=== PATIENT | male | born 1970 | race Caucasian/White ===

== ENCOUNTER 2020-01-12 18:02 | Emergency (ER) | payer BC ==
[~2020-01-12] VITALS: Ht 172.7 cm; Wt 93.0 kg
[2020-01-12 19:09] VITALS: BP 154/92
[2020-01-12 19:45] LABS: Basophils # (auto) 0 10 ^3/uL (0-0.2); Basophils % (auto) 0.4 % (0.0-2.0); Eosinophils # (auto) 0.1 10 ^3/uL (0-0.8); Eosinophils % (auto) 1.5 % (0.0-7.0); Hematocrit 40.4 % (41.0-53.0); Hemoglobin 14.1 g/dL (13.5-17.5); Lymphocytes # (auto) 0.8 10 ^3/uL (0.4-5.4); Lymphocytes % (auto) 10.7 % (10.0-50.0); Mean Corpuscular Hemoglobin 32.7 pg (28.0-32.0); Mean Corpuscular Hgb Conc. 34.9 g/dL (32.0-36.0); Mean Corpuscular Volume 93.8 fL (80.0-100.0); Monocytes # (auto) 0.5 10 ^3/uL (0-1.3); Monocytes % (auto) 6.7 % (0.0-12.0); Neutrophils % (auto) 80.7 % (37.0-80.0); Platelet Count (auto) 234 10^3/uL (140-450); Red Blood Cells 4.31 10^6/uL (4.5-5.90); Red Cell Distribution Width 12.9 % (11.8-14.3); White Blood Cell 7.5 10^3/uL (4.4-10.8)
[2020-01-12 20:01] LABS: INR 1.03 (0.9-1.15)
[2020-01-12 20:04] LABS: Albumin 4.1 g/dL (3.4-5.0); Calcium 9.1 mg/dL (8.5-10.1); Potassium 3.8 mmol/L (3.5-5.1)
[2020-01-12 20:05] LABS: BUN/Creatinine Ratio 17.1
[2020-01-12 20:07] LABS: Magnesium 2.4 mg/dL (1.6-2.6)
[2020-01-12 20:12] LABS: Bilirubin, Total 0.4 mg/dL (0.2-1.0); Total Protein 7.5 g/dL (6.4-8.2)
[2020-01-12 21:10] LABS: Urine Bacteria NONE SEEN /hpf (None Seen); Urine Blood Negative /uL (Negative); Urine WBC 1 /hpf (0 - 3)
[2020-01-13] MEDS ORDERED: ATOR20TA PO (17:52)
[2020-01-13] MEDS ORDERED: ENAL2.5T PO (17:53)
[2020-01-13] MEDS ORDERED: OMEP20TA PO (17:53)
== END 2020-01-12 20:02 | disposition left against medical advice (07) ==
LOC: ER 18:02
DX: R53.1 Weakness (principal); R20.0 Anesthesia of skin; Z53.21 Procedure and treatment not carried out due to patient leaving prior to being seen by health care provider
CPT/HCPCS: 36415; 70450; 71045; 80053; 81001; 83735; 83880; 84484; 85025; 85379; 85610; 85730; 93005

== ENCOUNTER 2020-01-13 11:16 | Inpatient (IN) | payer SELFPAY ==
[~2020-01-13] VITALS: Ht 172.7 cm; Wt 90.1 kg
[2020-01-13] MEDS ORDERED: ACETAMINOPHEN 325 MG TAB PO ONE (13:00)
[2020-01-13] MEDS ORDERED: LORazepam 2MG/ML-1ML VIAL IV ONE (13:15)
[2020-01-13 13:42] LABS: Basophils # (auto) 0 10 ^3/uL (0-0.2); Basophils % (auto) 0.5 % (0.0-2.0); Eosinophils # (auto) 0.2 10 ^3/uL (0-0.8); Hematocrit 41.2 % (41.0-53.0); Hemoglobin 13.7 g/dL (13.5-17.5); Lymphocytes # (auto) 1.6 10 ^3/uL (0.4-5.4); Lymphocytes % (auto) 28.8 % (10.0-50.0); Mean Corpuscular Hemoglobin 31.8 pg (28.0-32.0); Mean Corpuscular Hgb Conc. 33.2 g/dL (32.0-36.0); Mean Corpuscular Volume 95.6 fL (80.0-100.0); Monocytes # (auto) 0.4 10 ^3/uL (0-1.3); Monocytes % (auto) 6.6 % (0.0-12.0); Neutrophils # (auto) 3.4 10 ^3/uL (1.6-8.6); Neutrophils % (auto) 60.1 % (37.0-80.0); Nucleated Red Blood Cells % 0.1 %; Platelet Count (auto) 238 10^3/uL (140-450); Red Blood Cells 4.31 10^6/uL (4.5-5.90); Red Cell Distribution Width 13.3 % (11.8-14.3); White Blood Cell 5.7 10^3/uL (4.4-10.8)
[2020-01-13 13:57] LABS: INR 0.98 (0.9-1.15); Partial Thromboplastin Time 26.5 sec (23.64-32.05)
[2020-01-13 14:00] LABS: Albumin 3.6 g/dL (3.4-5.0); Anion Gap 7 (5-15); Blood Urea Nitrogen 15 mg/dL (7-18); Calcium 8.4 mg/dL (8.5-10.1); Carbon Dioxide 26 mmol/L (21-32); Chloride 108 mmol/L (98-107); Glucose 103 mg/dL (74-106); Magnesium 2.5 mg/dL (1.6-2.6); Potassium 3.7 mmol/L (3.5-5.1); Sodium 141 mmol/L (136-145)
[2020-01-13 14:04] LABS: Alanine Aminotransferase 24 U/L (16-61); Alkaline Phosphatase 82 U/L (45-117); Aspartate Aminotransferase 14 U/L (15-37); BUN/Creatinine Ratio 14.2; Bilirubin, Total 0.2 mg/dL (0.2-1.0); GFR African American 95 mL/min; GFR Non-African American 79 mL/min; Total Protein 6.8 g/dL (6.4-8.2)
[2020-01-13] MEDS ORDERED: FOLIC ACID 1 MG, MULTIPLE VITAMIN 10 ML, MAGNESIUM SULF SDV 50% 8 MEQ, THIAMINE INJ 100... INJ SCH ×5 (16:00)
[2020-01-13] MEDS ORDERED: NITROGLYCERIN 0.4 MG SL TAB SL PRN (16:00)
[2020-01-13] MEDS ORDERED: MORPHINE SULF INJ 2 MG/ML SYRINGE 1ML IV PRN ×2 (16:00)
[2020-01-13] MEDS ORDERED: ACETAMINOPHEN 500 MG TAB PO PRN (16:00)
[2020-01-13] MEDS ORDERED: SODIUM CHLORIDE 0.9% 1,000 ML IV ONE (16:30)
[2020-01-13] MEDS ORDERED: FOLIC ACID 1 MG in D5W 5% 50 ML IV ONE (16:30)
[2020-01-13] MEDS ORDERED: THIAMINE 100mg/ml INJ (200mg/2ml VIAL) IV ONE (16:30)
[2020-01-13 16:39] LABS: Urine WBC None Seen /hpf (0 - 3)
[2020-01-13 16:55] LABS: Urine Bacteria NONE SEEN /hpf (None Seen); Urine Blood Negative /uL (Negative); Urine Mucus FEW (None Seen); Urine Specific Gravity 1.038 (1.001-1.035)
[2020-01-13] MEDS: HYDROcodone-ACET 5/325MG TAB PO PRN (17:05)
[2020-01-13 17:09] LABS: Alcohol, Urine < 3.0 mg/dL (0-5); Amphetamine Screen, Urine POSITIVE (NEGATIVE); Barbiturate Scree,Urine NEGATIVE (NEGATIVE); Benzodiazephine Screen, Urine POSITIVE (NEGATIVE); Cannabinoid Screen, Urine POSITIVE (NEGATIVE); Cocaine Screen, Urine NEGATIVE (NEGATIVE); Opiate Scree,Urine POSITIVE (NEGATIVE); Phencyclidine Screen, Urine NEGATIVE (NEGATIVE)
--- NOTE | 2020-01-13 17:24 | NUR ---
Pt Arrived on Unit Pt arrived on unit via wheelchair from ED. Pt was able to ambulate to bed without difficulty. Pt is a/ox4 with no s/s of distress. Safety measures maintained with call light within reach, bed in lowest position and side rails up. Will continue to monitor.
[2020-01-13 17:30] VITALS: BP 146/100
[2020-01-13] MEDS: ONDANSETRON HCL 4 MG/2 ML VIAL IV PRN (17:37)
[2020-01-13 17:43] VITALS: BP 146/100
[2020-01-13] MEDS ORDERED: ATOR20TA PO (17:52)
[2020-01-13] MEDS ORDERED: ENAL2.5T PO (17:53)
[2020-01-13] MEDS ORDERED: OMEP20TA PO (17:53)
--- NOTE | 2020-01-13 19:30 | NUR ---
OPENING SHIFT NOTE Assumed care of patient who is A&O x4. Currently on RA with no s/s of distress. Denies pain at this time. Patient is ambulatory with standby assist, without the use of assistive devices. PIV intact and patent. Infusing IVF as ordered. No s/s of infection or irritation. POC discussed and patient verbalizes understanding. Bed is in low locked position with side rails up x2. Call light is within reach and patient encouraged to call for assistance when needed. Will continue to monitor for changes PRN.
[2020-01-13 20:00] VITALS: BP 123/83
[2020-01-13 21:58] VITALS: BP 125/83
--- NOTE | 2020-01-14 01:15 | NUR ---
Patient ambulated to the restroom independently. Steady gait noted; tolerated well.
--- NOTE | 2020-01-14 02:25 | NUR ---
PAIN Patient reports 4/10 headache and left hip pain. Requesting pain medication. Will medicate according to orders.
[2020-01-14] MEDS: HYDROcodone-ACET 5/325MG TAB PO PRN ×2 (02:30→09:55)
--- NOTE | 2020-01-14 05:17 | NUR ---
ELEVATED BLOOD PRESSURE Patient has a history of HTN. BP is 156/94, HR 70. Currently, the patient has no orders for BP medications. He states that he take enalapril at home. Hospitalist paged to notify.
[2020-01-14 05:37] VITALS: BP 156/94
--- NOTE | 2020-01-14 05:39 | NUR ---
Hospitalist Received call from Hospitalist, Chente Marie NP. New orders received. Will follow through.
[2020-01-14] MEDS ORDERED: cloNIDine HCL 0.1 MG TAB PO ONE (05:45)
--- NOTE | 2020-01-14 07:30 | NUR ---
Opening Shift Note Assumed care of patient, who is alert and oriented x4. No S/S of distress/SOB or pain. Bed is low, locked with 2x side rails up. Call light is within reach. Instructed on POC and to call for assist PRN, will continue to monitor for changes Q1hr and PRN.
[2020-01-14 09:00] VITALS: BP 137/82
[2020-01-14] MEDS: FAMOTIDINE 20 MG TAB PO SCH (09:56)
[2020-01-14] MEDS: FOLIC ACID 1 MG, MULTIPLE VITAMIN 10 ML, MAGNESIUM SULF SDV 50% 8 MEQ, THIAMINE INJ 100... INJ SCH ×5 (12:01)
[2020-01-14 13:00] VITALS: BP 143/97
[2020-01-14] MEDS ORDERED: ENALAPRIL MALEATE 2.5 MG TAB PO ONE (13:00)
[2020-01-14] MEDS ORDERED: LORazepam 0.5 MG TAB PO PRN (13:00)
--- NOTE | 2020-01-14 14:20 | NUR ---
EEG Called Nuclear Medicine to verify when patient will have EEG done. No answer, will attempt to call later.
[2020-01-14] MEDS: ONDANSETRON HCL 4 MG/2 ML VIAL IV PRN (15:17)
--- NOTE | 2020-01-14 16:05 | NUR ---
IV fluids Patient has banana bag IVF running per MD order. 300 ml infused and patient began reporting hot flashes and redness to skin; stated he did not feel good. This nurse stopped IV fluids and assessed skin. No rashes/bumps noted upon assessment.
[2020-01-14 17:00] VITALS: BP 137/79
--- NOTE | 2020-01-14 17:47 | NUR ---
NS IVF New orders for NS IVF to begin at 1800. Patient stated he does not want anymore IV fluids at this time. This nurse explained the need for IVF and patient still declined. Will relay to oncoming nurse.
[2020-01-14] MEDS: SODIUM CHLORIDE 0.9% 1,000 ML IV SCH (17:49)
--- NOTE | 2020-01-14 19:30 | NUR ---
Opening Shift Note Assumed care of patient. Patient is sleeping and resting comfortably. No S/S of distress/SOB or pain. Will continue to monitor for changes Q1hr and PRN. Bed locked in lowest position and bed rails up x2. Call light within reach.
[2020-01-14 21:55] VITALS: BP 138/84
[2020-01-15] MEDS: SODIUM CHLORIDE 0.9% 1,000 ML IV SCH ×3 (01:00→14:00)
[2020-01-15 05:23] VITALS: BP 144/94
--- NOTE | 2020-01-15 07:45 | NUR ---
Opening Note Assumed care of patient, he is A & O x4, no s/s of distress. POC discussed with patient. Bed is in lowest, locked position, call light within reach. Will continue to monitor Q1h and PRN.
--- NOTE | 2020-01-15 08:22 | NUR ---
Dr. Jung at bedside. No further orders at this time. Will check on status of EEG exam to be done today. Communication order to call Dr. Jung with results of EEG, will possibly discharge this afternoon.
[2020-01-15 09:00] VITALS: BP 171/99
[2020-01-15] MEDS ORDERED: ENALAPRIL MALEATE 2.5 MG TAB PO SCH (10:00)
[2020-01-15] MEDS: FAMOTIDINE 20 MG TAB PO SCH (11:12)
--- NOTE | 2020-01-15 11:12 | NUR ---
Patient BP elevated, patient was upset this morning and anxious to leave. Per patient, he apologized for "being grumpy this morning, I was frustrated and want to get out of here." Daily medication given for BP. Spoke to patient, he agrees he will wait for the EEG to be completed and for Dr. Lopez to clear him. Will reassess in one hour.
[2020-01-15] MEDS: HYDROcodone-ACET 5/325MG TAB PO PRN ×2 (11:13→11:15)
[2020-01-15] MEDS: FOLIC ACID 1 MG, MULTIPLE VITAMIN 10 ML, MAGNESIUM SULF SDV 50% 8 MEQ, THIAMINE INJ 100... INJ SCH ×5 (12:00)
[2020-01-15 12:15] VITALS: BP 145/95
--- NOTE | 2020-01-15 12:15 | NUR ---
BP reassess. BP 145/95, HR 63. Patient with no s/s of distress. Ambulatory and independent. EEG completed. Will continue to monitor.
--- NOTE | 2020-01-15 12:42 | NUR ---
Paged Dr. Lopez. Patient waiting on EEG results, EEG was completed this morning. Patient needs clearance by Dr. Lopez for discharge per Dr. Jung.
--- NOTE | 2020-01-15 13:25 | NUR ---
Paged Dr. Lopez Waiting on EEG to be read and neurological clearance for discharge per Dr. Jung.
--- NOTE | 2020-01-15 13:35 | NUR ---
Spoke to Dr. Jung on phone. Patient is anxious to go home, he says "I have to leave by 2PM." Informed Dr. Jung that patient would like to be discharged. Dr. Jung said we have to wait for clearance by neurology. If he wants to leave he will have to sign out AMA. Informed the patient regarding Dr. Jung's instructions. Patient refused to sign AMA at this time.
--- NOTE | 2020-01-15 13:55 | NUR ---
Spoke to patient regarding POC. Informed patient that if he had to leave by 2 PM we do not have results, AMA was offered, patient stated he would wait until this RN came back from lunch to see if results came back. This RN removed his IV to the left forearm, pressure dressing applied. at bedside. This RN informed patient I would check back when I came back from lunch, there will be a nurse covering for me to inform them if he changed his mind. Patient agreed.
--- NOTE | 2020-01-15 14:31 | NUR ---
Patient eloped. Bed empty, linen stripped. No sign of patient. Per BUTTON MACHINE OPERATOR patient left 20 minutes ago, this RN was at lunch. Covering RNMiranda was uniformed regarding patient leaving. Patient IV had been removed, no tele monitor. Will inform Dr. Jung and apparatus repair mechanic.
--- NOTE | 2020-01-15 14:47 | NUR ---
Dr. Jung informed regarding patient elopement. Notes placed. residential remodeling subcontractor informed of patient elopement.
--- NOTE | 2020-01-15 14:59 | NUR ---
Patient eloped. Addendum: 01/15/20 at 1500 by Joy Rai RN Amended: Links added.
== END 2020-01-15 14:31 | disposition left against medical advice (07) | DRG 71 ==
LOC: ER 11:16 → OVERFLOW 11:17 → CENTRAL 17:30
PROVIDERS: ADMIT Nurse Practitioner Acute Care; ATTEND Family Medicine
DX: G93.41 Metabolic encephalopathy (principal); F10.239 Alcohol dependence with withdrawal, unspecified; F41.9 Anxiety disorder, unspecified; M62.838 Other muscle spasm; Z53.29 Procedure and treatment not carried out because of patient's decision for other reasons; I10 Essential (primary) hypertension; K21.9 Gastro-esophageal reflux disease without esophagitis; E78.5 Hyperlipidemia, unspecified; E78.00 Pure hypercholesterolemia, unspecified; F13.10 Sedative, hypnotic or anxiolytic abuse, uncomplicated; F12.10 Cannabis abuse, uncomplicated; F11.10 Opioid abuse, uncomplicated; F19.10 Other psychoactive substance abuse, uncomplicated; Y90.0 Blood alcohol level of less than 20 mg/100 ml; Z88.6 Allergy status to analgesic agent; Z79.899 Other long term (current) drug therapy; Z82.49 Family history of ischemic heart disease and other diseases of the circulatory system
CPT/HCPCS: 36415; 70551; 71045; 80053; 80307; 81001; 82306; 82607; 83735; 84207; 84443; 84484; 85025; 85379; 85610; 85730; 95819; 96365; 96375; G0378; J2405; J7060

== ENCOUNTER 2020-01-31 09:29 | Emergency (ER) | payer BC, MEDICAID ==
[~2020-01-31] VITALS: Ht 172.7 cm; Wt 93.0 kg
[~2020-01-31 09:29] MED LIST: ATOR20TA PO; ENAL2.5T PO; OMEP20TA PO
[2020-01-31 09:39] VITALS: BP 165/107
[2020-01-31] MEDS ORDERED: HYDROcodone-ACET 10/325MG TAB PO ONE (10:15)
[2020-01-31] MEDS ORDERED: KETOROLAC TROMETH 60MG/2ML VIAL IM ONE (10:15)
== END 2020-01-31 11:26 | disposition home or self-care (01) ==
LOC: ER 09:29
DX: M48.061 Spinal stenosis, lumbar region without neurogenic claudication (principal); M54.16 Radiculopathy, lumbar region; G89.29 Other chronic pain; I10 Essential (primary) hypertension; E78.5 Hyperlipidemia, unspecified; K21.9 Gastro-esophageal reflux disease without esophagitis; Z88.6 Allergy status to analgesic agent
CPT/HCPCS: 72131; 96372; 99284; J1885

== ENCOUNTER → 2020-03-21 | Emergency (ER) | payer SELFPAY ==
[~2020-03-21] VITALS: Ht 30.5 cm; Wt 0.5 kg
[~2020-03-21] MED LIST changes: +ACETAMINOPHEN 325 MG TAB PO ONE; +ATORVASTATIN 20 MG TAB ONE; +HALOPERIDOL LACTATE 5 MG/ML INJ VIAL IM ONE; +HYDROcodone-ACET 10/325MG TAB PO ONE; +HYDROcodone-ACET 5/325MG TAB ONE; +HYDROcodone-ACET 5/325MG TAB PO ONE; +LORazepam 0.5 MG TAB PO ONE; +LORazepam 0.5 MG TAB PO PRN; +LORazepam 2MG/ML-1ML VIAL IM ONE; +ONDANSETRON HCL 4 MG/2 ML VIAL ONE; +SODIUM CHLORIDE 0.9% 1,000 ML IV ONE; +THIAMINE INJ 100 MG in SODIUM CHLORIDE 0.9% 1,000 ML IV ONE; +diphenhdrAMINE HCL 50 MG/1 ML VL IM ONE
[2020-03-21 15:31] LABS: Basophils # (auto) 0 10 ^3/uL (0-0.2); Basophils % (auto) 0.9 % (0.0-2.0); Eosinophils # (auto) 0.1 10 ^3/uL (0-0.8); Eosinophils % (auto) 2.3 % (0.0-7.0); Hematocrit 39.6 % (41.0-53.0); Hemoglobin 13.5 g/dL (13.5-17.5); Lymphocytes # (auto) 1.1 10 ^3/uL (0.4-5.4); Mean Corpuscular Hemoglobin 32.2 pg (28.0-32.0); Mean Corpuscular Hgb Conc. 34.1 g/dL (32.0-36.0); Mean Corpuscular Volume 94.4 fL (80.0-100.0); Monocytes # (auto) 0.5 10 ^3/uL (0-1.3); Monocytes % (auto) 9.9 % (0.0-12.0); Neutrophils # (auto) 3.3 10 ^3/uL (1.6-8.6); Neutrophils % (auto) 64.9 % (37.0-80.0); Nucleated Red Blood Cells % 0.1 %; Platelet Count (auto) 189 10^3/uL (140-450); Red Blood Cells 4.19 10^6/uL (4.5-5.90); Red Cell Distribution Width 13.1 % (11.8-14.3); White Blood Cell 5.1 10^3/uL (4.4-10.8)
[2020-03-21 15:38] LABS: Alcohol, Urine < 3.0 mg/dL (0-5); Amphetamine Screen, Urine POSITIVE (NEGATIVE); Barbiturate Scree,Urine NEGATIVE (NEGATIVE); Benzodiazephine Screen, Urine POSITIVE (NEGATIVE); Cannabinoid Screen, Urine POSITIVE (NEGATIVE); Cocaine Screen, Urine NEGATIVE (NEGATIVE); Opiate Scree,Urine POSITIVE (NEGATIVE); Phencyclidine Screen, Urine NEGATIVE (NEGATIVE)
[2020-03-21 15:44] LABS: Albumin 3.7 g/dL (3.4-5.0); Anion Gap 5 (5-15); BUN/Creatinine Ratio 18.5; Blood Alcohol < 3.0 mg/dL (0-5); Blood Urea Nitrogen 17 mg/dL (7-18); Calcium 8.5 mg/dL (8.5-10.1); Carbon Dioxide 28 mmol/L (21-32); Chloride 106 mmol/L (98-107); GFR African American 112 mL/min; GFR Non-African American 93 mL/min; Glucose 95 mg/dL (74-106); Potassium 3.3 mmol/L (3.5-5.1); Salicylate < 1.7 mg/dL (2.8-20.0); Sodium 139 mmol/L (136-145)
[2020-03-21 15:46] LABS: Acetaminophen < 2.0 ug/mL (10-30)
[2020-03-21 15:47] LABS: Alanine Aminotransferase 27 U/L (16-61); Alkaline Phosphatase 64 U/L (45-117); Aspartate Aminotransferase 18 U/L (15-37); Bilirubin, Total 0.7 mg/dL (0.2-1.0); Total Protein 6.9 g/dL (6.4-8.2)
[2020-03-22] MEDS: PANTOPRAZOLE 40 MG TAB PO SCH (18:44)
[2020-03-22] MEDS: ATORVASTATIN 20 MG TAB PO SCH (21:10)
[2020-03-23] MEDS: PANTOPRAZOLE 40 MG TAB PO SCH (10:05)
[2020-03-23] MEDS: ENALAPRIL MALEATE 10 MG TAB PO SCH (10:06)
[2020-03-23] MEDS: HYDROcodone-ACET 5/325MG TAB PO PRN (10:09)
[2020-03-23] MEDS: ATORVASTATIN 20 MG TAB PO SCH (23:02)
[2020-03-24] MEDS: HYDROcodone-ACET 5/325MG TAB PO PRN ×3 (06:23→22:27)
[2020-03-24] MEDS: ENALAPRIL MALEATE 10 MG TAB PO SCH (12:13)
[2020-03-24] MEDS: PANTOPRAZOLE 40 MG TAB PO SCH (12:13)
[2020-03-24 19:28] VITALS: BP 159/97
[2020-03-24] MEDS: ATORVASTATIN 20 MG TAB PO SCH (22:27)
[2020-03-25] MEDS: HYDROcodone-ACET 5/325MG TAB PO PRN (05:07)
== END | disposition home or self-care (01) ==
LOC: EDUNIT# 14:47 → ER 14:55 → EDBD 14:55
DX: T42.4X2A Poisoning by benzodiazepines, intentional self-harm, initial encounter (principal); T40.602A Poisoning by unspecified narcotics, intentional self-harm, initial encounter; R41.82 Altered mental status, unspecified; F19.10 Other psychoactive substance abuse, uncomplicated; F10.20 Alcohol dependence, uncomplicated
CPT/HCPCS: 36415; 70450; 80053; 80307; 80320; 80329; 85025; 93005; 96360; 96361; 96372; 99285; J2405

== ENCOUNTER 2021-12-30 21:44 | Emergency (ER) | payer MEDICAID ==
[~2021-12-30] VITALS: Ht 172.7 cm; Wt 86.2 kg
[~2021-12-30 21:44] MED LIST changes: -ACETAMINOPHEN 325 MG TAB PO ONE; -ATORVASTATIN 20 MG TAB ONE; -ENAL2.5T PO; +ENAL2.5T7 PO; -HALOPERIDOL LACTATE 5 MG/ML INJ VIAL IM ONE; -HYDROcodone-ACET 10/325MG TAB PO ONE; -HYDROcodone-ACET 5/325MG TAB ONE; -HYDROcodone-ACET 5/325MG TAB PO ONE; -LORazepam 0.5 MG TAB PO ONE; -LORazepam 0.5 MG TAB PO PRN; -LORazepam 2MG/ML-1ML VIAL IM ONE; -ONDANSETRON HCL 4 MG/2 ML VIAL ONE; -SODIUM CHLORIDE 0.9% 1,000 ML IV ONE; -THIAMINE INJ 100 MG in SODIUM CHLORIDE 0.9% 1,000 ML IV ONE; -diphenhdrAMINE HCL 50 MG/1 ML VL IM ONE
[2021-12-30 23:19] VITALS: BP 160/100
== END 2021-12-30 23:28 | disposition home or self-care (01) ==
LOC: EDBD 21:44 → ER 21:49
DX: T40.0X1A Poisoning by opium, accidental (unintentional), initial encounter (principal); K21.9 Gastro-esophageal reflux disease without esophagitis; E78.5 Hyperlipidemia, unspecified; I10 Essential (primary) hypertension; X58.XXXA Exposure to other specified factors, initial encounter; Y93.89 Activity, other specified; Y92.89 Other specified places as the place of occurrence of the external cause; Y99.8 Other external cause status
CPT/HCPCS: 82962; 93005

== ENCOUNTER 2022-05-08 11:45 | Emergency (ER) | payer OTHER ==
[~2022-05-08] VITALS: Ht 172.7 cm; Wt 88.5 kg
[2022-05-08 12:43] VITALS: BP 150/82
== END 2022-05-08 15:17 | disposition home or self-care (01) ==
LOC: ER 11:45
DX: M48.02 Spinal stenosis, cervical region (principal); K21.9 Gastro-esophageal reflux disease without esophagitis; E78.5 Hyperlipidemia, unspecified; I10 Essential (primary) hypertension
CPT/HCPCS: 72125

== ENCOUNTER 2022-07-01 06:05 | Emergency (ER) | payer MEDICAID, OTHER ==
[~2022-07-01] VITALS: Ht 172.7 cm; Wt 100.0 kg
[2022-07-01] MEDS ORDERED: KETOROLAC TROMETH 60MG/2ML VIAL IM ONE (07:00)
[2022-07-01 07:20] VITALS: BP 152/80
[2022-07-01] MEDS ORDERED: COLC1CAP PO (07:33)
[2022-07-01] MEDS ORDERED: INDO50SU RE (07:33)
== END 2022-07-01 07:39 | disposition home or self-care (01) ==
LOC: ER 06:05
DX: M19.072 Primary osteoarthritis, left ankle and foot (principal); M10.9 Gout, unspecified; K21.9 Gastro-esophageal reflux disease without esophagitis; E78.5 Hyperlipidemia, unspecified; I10 Essential (primary) hypertension; Z88.6 Allergy status to analgesic agent
CPT/HCPCS: 73630; 96372; 99283; J1885

== ENCOUNTER 2023-12-14 04:59 | Emergency (ER) | payer BC, MEDICAID ==
[~2023-12-14] VITALS: Ht 172.7 cm; Wt 95.5 kg
[~2023-12-14 04:59] MED LIST changes: +COLC1CAP PO; +ENAL1TAB42 PO; -ENAL2.5T7 PO; +INDO50SU RE
[2023-12-14] MEDS ORDERED: NALOXONE HCL 1MG/ML 2ML SYRINGE ONE (13:17)
[2023-12-14] MEDS ORDERED: NALOXONE HCL 1MG/ML 2ML SYRINGE IV ONE ×3 (13:30→19:45)
[2023-12-14 14:15] VITALS: PULSE 68; RESP 13; O2SAT 97
[2023-12-14] MEDS ORDERED: NALOXONE HCL 2 MG in D5W 5% 495 ML IV ONE (19:45)
[2023-12-14 20:00] VITALS: PULSE 62; RESP 10; TEMP 97.7; O2SAT 99
[2023-12-15 03:32] LABS: Amphetamine Screen, Urine Pos (NEGATIVE); Barbiturate Scree,Urine Neg (NEGATIVE); Benzodiazephine Screen, Urine Pos (NEGATIVE); Cannabinoid Screen, Urine Neg (NEGATIVE); Cocaine Screen, Urine Neg (NEGATIVE); Opiate Scree,Urine Neg (NEGATIVE); Phencyclidine Screen, Urine Neg (NEGATIVE)
[2023-12-15] MEDS ORDERED: FLUMAZENIL 0.1 MG/ML INJ 10ML MDV IV ONE (04:15)
[2023-12-15 06:00] VITALS: BP 146/83; PULSE 81; RESP 11; O2SAT 93
[2023-12-15] MEDS ORDERED: NALOXONE HCL 0.4 MG/ML VIAL IV ONE (06:30)
[2023-12-15] MEDS ORDERED: NALOXONE HCL 0.4 MG/ML VIAL ONE (06:30)
== END 2023-12-15 07:11 | disposition home or self-care (01) ==
LOC: ER 04:59
DX: F41.9 Anxiety disorder, unspecified (principal); I10 Essential (primary) hypertension; K21.9 Gastro-esophageal reflux disease without esophagitis; E78.5 Hyperlipidemia, unspecified; F10.90 Alcohol use, unspecified, uncomplicated; Z98.890 Other specified postprocedural states; Y90.0 Blood alcohol level of less than 20 mg/100 ml
CPT/HCPCS: 80307; 96365; 96375; 96376; 99285; J2310; J7060

== ENCOUNTER 2025-08-27 06:13 | Inpatient (IN) | payer MEDICAID ==
[~2025-08-27] VITALS: Ht 172.7 cm; Wt 95.0 kg
--- NOTE | 2025-08-27 06:58 | ED.PDOC ---
GI ASSESSMENT HPI Comments 55 y/o M, with PMHx of HTN, HLD, and GERD presents to the ED for CC of abdominal pain. Patient states, that he possibly confused spoiled seafood x2days ago as he has now developed abdominal pain with associated nausea and vomiting. Patient denies diarrhea, fever, chills, fatigue, or faintness. No other symptoms or modifying factors are present at this time. Chief Complaint: Abdominal Pain Time Seen by MD: 06:45 Primary Care Provider: CARISSA Howard Notes: Nurses Notes, Medications, Allergies Allergies: Coded Allergies: Aspirin (Verified Allergy, Unknown, 03/14/14) Home Meds Active Scripts Colchicine (Colchicine) 0.6 Mg Cap, 0.6 MG PO BID, #20 CAP Prov:LAVON PLATT 07/01/22 Indomethacin (Indocin) 50 Mg Sup, 50 MG RE TID, #30 SUPP Prov:LAVON PLATT 07/01/22 Reported Medications Omeprazole (Gnp Omeprazole) 20 Mg Tab, 1 TAB PO DAILY, #90 TAB 1 Refill 01/13/20 Enalapril Maleate (Enalapril Maleate) 2.5 Mg Tab, 2.5 MG PO DAILY for 30 Days, MG 01/13/20 Atorvastatin Calcium (Lipitor) 20 Mg Tab, 1 TAB PO DAILY, #90 TAB 1 Refill 01/13/20 Information Source: Patient Mode of Arrival: Ambulatory Timing: Days Duration: Since onset Prehospital treatment: None Vomitus: Watery Stool: Normal Severity: Moderate Recent: Possible spoiled food Recent Hx of: None Pain Location: Diffuse Modifying Factors: Nothing Associated sign and symptoms: Nausea, Vomiting, Abdominal Pain Past Medical History PAST MEDICAL HISTORY: GERD, High Lipids, HTN Surgical History: Hernia Repair Family History Family History: Reviewed,noncontributory to illness Social History Smoker: Non-Smoker Alcohol: Heavy Drugs: Denies Drug Use Lives In: Home Constitutional: denies: chills, diaphoresis, fatigue, fever, malaise, sweats, weakness, others EENTM: denies: blurred vision, double vision, ear bleeding, ear discharge, ear drainage, ear pain, ear ringing, eye pain, eye redness, hearing loss, mouth pain, mouth swelling, nasal discharge, nose bleeding, nose congestion, nose pain, photophobia, tearing, throat pain, throat swelling, voice changes, others Respiratory: denies: cough, hemoptysis, orthopnea, SOB at rest, shortness of breath, SOB with excertion, stridor, wheezing, others Cardiovascular: denies: chest pain, dizzy spells, diaphoresis, Dyspnea on exer tion, edema, irregular heart beat, left arm pain, lightheadedness, palpitations, PND, syncope, others Gastrointestinal: reports: abdominal pain, nausea, vomiting; denies: abdomen distended, blood streaked bowels, constipated, diarrhea, dysphagia, difficulty swallowing, hematemesis, melena, poor appetite, poor fluid intake, rectal bleeding, rectal pain, others Genitourinary: denies: burning, dysuria, flank pain, frequency, hematuria, incontinence, penile discharge, penile sore, pain, testicle pain, testicle swelling, urgency, others Neurological: denies: dizziness, fainting, headache, left sided numbness, left sided weakness, numbness, paresthesia, pre-existing deficit, right sided numbness, right sided weakness, seizure, speech problems, tingling, tremors, weakness, others Musculoskeletal: denies: back pain, gout, joint pain, joint swelling, muscle pain, muscle stiffness, neck pain, others Integumetry: denies: bruises, change in color, change in hair/nails, dryness, laceration, lesions, lumps, rash, wounds, others Allergic/Immunocompromised: denies: Difficulty Healing, Frequent Infections, Hives, Itching, others Hematologic/Lymphatic: denies: anemia, blood clots, easy bleeding, easy bruising, swollen glands, others Endocrine: denies: excessive hunger, excessive sweating, excessive thirst, excessive urination, flushing, intolerance to cold, intolerance to heat, unexplained weight gain, unexplained weight loss, others Psychiatric: denies: anxiety, bipolar disorder, depression, hopeless, panic disorder, schizophrenia, sleepless, suicidal, others All Other Systems: Reviewed and Negative Physical Exam General Appearance: Moderate Distress HEENT: Normal ENT Inspection, Pharynx Normal, TMs Normal Neck: Full Range of Motion, Non-Tender, Normal, Normal Inspection Respiratory: Chest Non-Tender, Lungs Clear, No Accessory Muscle Use, No Respiratory Distress, Normal Breath Sounds Cardiovascular: No Edema, No JVD, No Murmur, No Gallop, Normal Peripheral Pulses, Regular Rate/Rhythm Breast Exam: Deferred Gastrointestinal: Diffuse Genitalia: Deferred Pelvic: Deferred Rectal: Deferred Extremities: No calf tenderness, Normal capillary refill, Normal inspection, Normal range of motion, Non-tender, No pedal edema Musculoskeletal : Apperance: Normal Neurologic: Alert, touch up carver II-XII nml as Tested, No Motor Deficits, Normal Affect, Normal Mood, No Sensory Deficits Cerebellar Function: Normal Reflexes: Normal Skin: Dry, Normal Color, Warm Peripheral Pulses: 3+ Radial (R), 3+ Radial (L) Lymphatic: No Adenopathy Was a procedure done? Was a procedure done?: No GI differential Dx Differential Diagnosis: Constipation, Diverticular disease, Esophagitis, Gastritis/PUD, Gastroenteritis, Electrolyte Imbalance, Food Poisoning, Bacterial, Viral X-Ray, Labs, Meds, VS Vital Signs Date Time Temp Pulse Resp B/P (MAP) Pulse Ox O2 Delivery O2 Flow Rate FiO2 08/27/25 08:52 85 16 144/93 08/27/25 07:59 86 16 98 Room Air* 0 21 08/27/25 07:59 97.8 86 16 160/101 (120) 98 97.8 08/27/25 07:52 86 16 160/101 08/27/25 06:32 97.6 92 20 138/92 98 97.6 Lab Test 08/27/25 07:44 Range/Units White Blood Count 7.3 4.4-10.8 10^3/uL Red Blood Count 4.36 L 4.5-5.90 10^6/uL Hemoglobin 14.0 13.5-17.5 g/dL Hematocrit 39.7 L 41.0-53.0 % Mean Corpuscular Volume 90.9 80.0-100.0 fL Mean Corpuscular Hemoglobin 32.1 H 28.0-32.0 pg Mean Corpuscular Hemoglobin Concent 35.3 32.0-36.0 g/dL Red Cell Distribution Width 13.0 11.8-14.3 % Platelet Count 243 140-450 10^3/uL Mean Platelet Volume 6.9 6.9-10.8 fL Neutrophils (%) (Auto) 76.9 37.0-80.0 % Lymphocytes (%) (Auto) 16.0 10.0-50.0 % Monocytes (%) (Auto) 5.8 0.0-12.0 % Eosinophils (%) (Auto) 1.1 0.0-7.0 % Basophils (%) (Auto) 0.2 0.0-2.0 % Neutrophils # (Auto) 5.6 1.6-8.6 10 ^3/uL Lymphocytes # (Auto) 1.2 0.4-5.4 10 ^3/uL Monocytes # (Auto) 0.4 0-1.3 10 ^3/uL Eosinophils # (Auto) 0.1 0-0.8 10 ^3/uL Basophils # (Auto) 0 0-0.2 10 ^3/uL Nucleated Red Blood Cells 0.1 % Sodium Level 138 136-145 mmol/L Potassium Level 3.9 3.5-5.1 mmol/L Chloride Level 99 98-107 mmol/L Carbon Dioxide Level 31 20-31 mmol/L Anion Gap 8 5-15 Blood Urea Nitrogen 21 9-23 mg/dL Creatinine 1.35 H 0.700-1.30 mg/dL Glomerular Filtration Rate Calc 62 >90 mL/min BUN/Creatinine Ratio 15.6 10.0-20.0 Serum Glucose 109 H 74-106 mg/dL Calcium Level 9.9 8.7-10.4 mg/dL Lipase Pending Current Medications Medications (Trade) Dose Ordered Sig/Marquez Route Start Time Stop Time Status Last Admin Ondansetron HCl (Zofran) 4 mg ONCE ONCE IV 08/27/25 07:00 08/27/25 07:01 DC 08/27/25 07:52 Sodium Chloride 1,000 ml @ 1,000 mls/hr Q1H ONCE IVB 08/27/25 07:00 08/27/25 07:59 DC 08/27/25 07:42 Hydromorphone HCl (Dilaudid Injection) 0.5 mg ONCE ONCE IV 08/27/25 07:00 08/27/25 07:01 DC 08/27/25 07:52 Patient alert. Complaining of abdominal pain. Possibly after having seafood pain Vitals stable. Answering questions. Abdomen is diffusely tender. Establish intravenous access. Was given fluids. Was given pain medication. Was given Zofran. Explained to the patient. Continue monitoring. [address] [address] Ph: [phone] DIAGNOSTIC IMAGING Diagnostic Imaging Report : [id number] Signed PATIENT: NEYMAR AREVALO IACCT: [id number] UNIT: [id number] : 1970 LOC: ER ROOM / BED: / AGE / SEX: 55 / M ADM STATUS: REG ER SERVICE [id number] ORDERING PHYSICIAN: MICHEEL RIGGINS MD PROCEDURE(s): ABPL - CT AB PEL WO CON-NO ORAL OR IV REASON: enteritis ORDER NUMBER(s): [id number], ACCESSION NUMBER(s): [id number] CLINICAL INFORMATION: Enteritis. TECHNIQUE: Axial CT images of the abdomen and pelvis were obtained without IV contrast. Coronal and sagittal reformatted images were obtained, reviewed, and stored. Evaluation of the parenchymal organs is limited without IV contrast. Evaluation of the bowel and mesentery is limited without oral contrast. All CT scans at this medical facility are performed using dose modulation techniques as appropriate to a performed exam including the following: Automated exposure cont rol was utilized; adjustment of the MA and/or KV according to patient size; and use of iterative reconstruction technique. CTDIvol = 21.13 mGy DLP = 1218.74 mGy-cm COMPARISON: None FINDINGS: Lung bases: Lung bases are clear. Liver: Grossly unremarkable in its noncontrast enhanced appearance. No abnormal density or focal lesion identified. Biliary: No calcified gallstones or biliary ductal dilatation. Spleen: Unremarkable. Pancreas: Grossly unremarkable in its noncontrast enhanced appearance. Adrenal glands: Unremarkable. No mass. Kidneys: No hydronephrosis. Small nonobstructing right renal calculi measuring up to 2 mm in greatest dimension. No obstructing calculi. Aorta/Vascular: Moderate atherosclerotic calcification. No abdominal aortic aneurysm. Lymph nodes: Para-aortic lymph nodes measuring up to 2.6 x 0.8 cm, most likely reactive. Small subcentimeter external iliac lymph nodes are seen bilaterally. Bowel/mesentery: Nonspecific nondilated fluid-filled small bowel loops. No small bowel obstruction. Appendix is visualized and appears unremarkable. Scattered colonic diverticula without adjacent inflammatory changes to suggest diverticulitis. Pelvic organs: Grossly unremarkable. Bladder: Unremarkable. No mass. Abdominal wall: No mass or hernia. Bones: Serpiginous areas of sclerosis in the left femoral head, suspected osteonecrosis. No evidence of cortical collapse. Postsurgical changes of prior right total hip arthroplasty. IMPRESSION: 1. Nonspecific nondilated fluid-filled small bowel loops. Findings may be seen with ileus or enteritis in the appropriate clinical setting. No small bowel obstruction. 2. Scattered colonic diverticula without adjacent inflammatory changes to suggest diverticulitis. 3. Small nonobstructing right renal calculi. No hydronephrosis or obstructing calculi. 4. 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 No evidence of cortical collapse at this time. 5. Likely reactive lymph nodes in the retroperitoneum. 6. Additional findings as described above. ATED BY: PEDRO ARAIZA DO DICTATED DATE/TIME: 08/27/25732 SIGNED BY: PEDRO ARAIZA DO SIGNED DATE/TIME: 08/27/25732 CC: Time of 1ST Reevaluation: 07:15 Reevaluation 1ST: Unchanged Patient Education/Counseling: Diagnosis, Treatment Family Education/Counseling: No Family Present SEPSIS Sepsis Screen Date sepsis recognized/suspect: Aug 27, 2025 Time Sepsis recognized/suspect: 06 Recent Procedure: No On Antibiotic Therapy: No Respiratory Rate >20: No Heart Rate >90: Yes Temp<36 C (96.8 F) or >38.3 C: No SBP <90 or MAP <65 mmHG: No New Acute Mental Status Change: No Is the patient on CPAP, BIPAP,: No Physician Orders Lipase (08/27/25 06:48) Urinalysis (08/27/25 06:48) Ct Ab Pel Wo Con-No Oral Or Iv (08/27/25 06:48) Basic Metabolic Panel (08/27/25 06:48) Vital Signs Date Time Temp Pulse Resp B/P (MAP) Pulse Ox O2 Delivery O2 Flow Rate FiO2 08/27/25 08:52 85 16 144/93 08/27/25 07:59 86 16 98 Room Air* 0 21 08/27/25 07:59 97.8 86 16 160/101 (120) 98 97.8 08/27/25 07:52 86 16 160/101 08/27/25 06:32 97.6 92 20 138/92 98 97.6 Laboratory Tests Test 08/27/25 07:44 White Blood Count 7.3 10^3/uL (4.4-10.8) Medications Medications Dose Ordered Sig/Marquez Route Start Time Stop Time Status Last Admin Dose Admin Hydromorphone HCl 0.5 mg ONCE ONCE IV 08/27/25 07:00 08/27/25 07:01 DC 08/27/25 07:52 Ondansetron HCl 4 mg ONCE ONCE IV 08/27/25 07:00 08/27/25 07:01 DC 08/27/25 07:52 Sodium Chloride 1,000 ml @ 1,000 mls/hr Q1H ONCE IVB 08/27/25 07:00 08/27/25 07:59 DC 08/27/25 07:42 Departure 1 Departure Time of Disposition: 07:15 Impression: Primary Impression: Acute abdominal pain Additional Impression: Gastroenteritis Disposition: ADMITTED INPATIENT Admit to: Med Surg Condition: Guarded Critical Care Note Critical Care Time?: No Stability Stability form required: No Heart Score Heart Score: Heart Score Response (Comments) Value History N/A 0 EKG N/A 0 Age N/A 0 Risk Factors N/A 0 Troponin N/A 0 Total 0 I personally scribed for MICHELE RIGGINS MD ([email or web address]) on 08/27/25 at 06:58. Electronically submitted by Aziza Butler ([email or web address]). I personally scribed for MICHELE RIGGINS MD ([email or web address]) on 08/27/25 at 09:09. Electronically submitted by Aziza Butler ([email or web address]). MICHELE RIGGINS MD Aug 27, 2025 06:58
--- NOTE | 2025-08-27 07:35 | DVH ---
CLINICAL INFORMATION: Enteritis. TECHNIQUE: Axial CT images of the abdomen and pelvis were obtained without IV contrast. Coronal and s agittal reformatted images were obtained, reviewed, and stored. Evaluation of the parenchymal organs is limited without IV contrast. Evaluation of the bowel and mesentery is limited without oral contras t. All CT scans at this medical facility are performed using dose modulation techniques as appropriat e to a performed exam including the following: Automated exposure control was utilized; adjustment of the MA and/or KV according to patient size; and use of iterative reconstruction technique. CTDIvol = 21.13 mGy DLP = 1218.74 mGy-cm COMPARISON: None FINDINGS: Lung bases: Lung bases are clear. Liver: Grossly unremarkable in its noncontrast enhanced appearance. No abnormal density or focal lesi on identified. Biliary: No calcified gallstones or biliary ductal dilatation. Spleen: Unremarkable. Pancreas: Grossly unremarkable in its noncontrast enhanced appearance. Adrenal glands: Unremarkable. No mass. Kidneys: No hydronephrosis. Small nonobstructing right renal calculi measuring up to 2 mm in greatest dimension. No obstructing calculi. Aorta/Vascular: Moderate atherosclerotic calcification. No abdominal aortic aneurysm. Lymph nodes: Para-aortic lymph nodes measuring up to 2.6 x 0.8 cm, most likely reactive. Small subcen timeter external iliac lymph nodes are seen bilaterally. Bowel/mesentery: Nonspecific nondilated fluid-filled small bowel loops. No small bowel obstruction. A ppendix is visualized and appears unremarkable. Scattered colonic diverticula without adjacent infla mmatory changes to suggest diverticulitis. Pelvic organs: Grossly unremarkable. Bladder: Unremarkable. No mass. Abdominal wall: No mass or hernia. Bones: Serpiginous areas of sclerosis in the left femoral head, suspected osteonecrosis. No evidence of cortical collapse. Postsurgical changes of prior right total hip arthroplasty. IMPRESSION: 1. Nonspecific nondilated fluid-filled small bowel loops. Findings may be seen with ileus or enteriti s in the appropriate clinical setting. No small bowel obstruction. 2. Scattered colonic diverticula without adjacent inflammatory changes to suggest diverticulitis. 3. Small nonobstructing right renal calculi. No hydronephrosis or obstructing calculi. 4. 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 No evidence of cortical collapse at this time. 5. Likely reactive lymph nodes in the retroperitoneum. 6. Additional findings as described above.
[2025-08-27] MEDS: SODIUM CHLORIDE 0.9% 1,000 ML IVB ONE (07:42)
[2025-08-27] MEDS: HYDROmorphone HCL 2 MG/ML VL/or syr IV ONE ×3 (07:52→22:48)
[2025-08-27] MEDS: ONDANSETRON HCL 4 MG/2 ML VIAL IV ONE (07:52)
[2025-08-27 07:59] VITALS: PULSE 86; RESP 16; O2SAT 98
[2025-08-27 08:11] LABS: Chloride 99 mmol/L (98-107); Potassium 3.9 mmol/L (3.5-5.1); Sodium 138 mmol/L (136-145)
[2025-08-27 08:12] LABS: Anion Gap 8 (5-15); Calcium 9.9 mg/dL (8.7-10.4); Carbon Dioxide 31 mmol/L (20-31)
[2025-08-27 08:13] LABS: Hematocrit 39.7 % (41.0-53.0); Hemoglobin 14.0 g/dL (13.5-17.5); Mean Corpuscular Hemoglobin 32.1 pg (28.0-32.0); Mean Corpuscular Volume 90.9 fL (80.0-100.0); Nucleated Red Blood Cells % 0.1 %
[2025-08-27 08:17] LABS: BUN/Creatinine Ratio 15.6 (10.0-20.0); Blood Urea Nitrogen 21 mg/dL (9-23)
[2025-08-27 08:18] LABS: Glucose 109 mg/dL (74-106)
[2025-08-27 09:11] LABS: Lipase 131 U/L (12-53)
[2025-08-27 09:25] LABS: Urine Protein, UAD Negative (Negative)
[2025-08-27 13:00] VITALS: BP 130/83; PULSE 100; RESP 14; TEMP 97.4; O2SAT 98
[2025-08-27] MEDS ORDERED: ACETAMINOPHEN 325 MG TAB PO PRN (13:00)
[2025-08-27] MEDS ORDERED: ONDANSETRON HCL 4 MG/2 ML VIAL IV PRN (13:00)
[2025-08-27] MEDS: PANTOPRAZOLE 40 MG/10 ML VIAL INJ IV ONE (16:53)
[2025-08-27 17:38] VITALS: BP 147/83; PULSE 83; PULSE 89; RESP 18; TEMP 98.5; O2SAT 97
[2025-08-27] MEDS: HYDROcodone-ACET 5/325MG TAB PO PRN (18:06)
[2025-08-27] MEDS: SODIUM CHLORIDE 0.9% 1,000 ML IV ONE (18:07)
--- NOTE | 2025-08-27 18:31 | DVHHP2 ---
History of Present Illness Reason for Visit: Abdominal pain History of Present Illness 55-year-old male presents for evaluation of abdominal pain. Patient reports a two day history of diffuse abdominal pain with associated nausea and vomiting. He states symptoms started after eating seafood for dinner two days ago. Reports occasional chills. No diarrhea. No other acute complaints. Past Medical History Hypertension, dyslipidemia, GERD Past Surgical History Hernia repair Family History Noncontributory Smoke: No ALCOHOL: heavy Drugs: None Lives: with Family Review of Systems Review of Systems Review of systems are currently negative otherwise addressed in HPI. Allergies: Coded Allergies: Aspirin (Verified Allergy, Unknown, 03/14/14) Medications Current Medications Medications Dose Ordered Sig/Marquez Route Start Time Stop Time Status Last Admin Dose Admin Pantoprazole Sodium 40 mg DAILY IV 08/28/25 10:00 Enalapril Maleate 2.5 mg DAILY PO 08/28/25 10:00 Atorvastatin Calcium 20 mg HS PO 08/27/25 22:00 Acetaminophen/ Hydrocodone Bitart 1 tab Q4HP PRN PO 08/27/25 13:00 08/27/25 18:06 1 TAB Ondansetron HCl 4 mg Q4HP PRN IV 08/27/25 13:00 Acetaminophen 650 mg Q6HP PRN PO 08/27/25 13:00 Exam Vital Signs Vital Signs Date Time Temp Pulse Resp B/P (MAP) Pulse Ox O2 Delivery O2 Flow Rate FiO2 08/27/25 13:00 97.4 100 14 130/83 (99) 98 97.4 08/27/25 07:59 Room Air* 0 21 Exam Gen: 55-year-old male in mild distress Skin: Warm, dry, normal color and texture, no rash. HEENT: Normocephalic atraumatic, mucous membranes moist and pink. Neck: Cervical and supraclavicular nodes normal without enlargement, trachea is midline, thyroid gland is normal without masses. Pulmonary: Clear to auscultation and percussion bilaterally. Cardiac: Regular rate and rhythm. No murmur Abdomen: Soft, nontender, nondistended, bowel sounds present all 4 quadrants, no guarding, no rigidity, no organomegaly. Extremities: No cyanosis, clubbing, no edema Neuro: Cranial nerves II through XII grossly intact, normal affect and speech, no focal motor deficits. Labs/Xrays ORDERING PHYSICIAN: MICHELE RIGGINS MD PROCEDURE(s): ABPL - CT AB PEL WO CON-NO ORAL OR IV REASON: enteritis ORDER NUMBER(s): [id number], ACCESSION NUMBER(s): [id number] CLINICAL INFORMATION: Enteritis. TECHNIQUE: Axial CT images of the abdomen and pelvis were obtained without IV contrast. Coronal and sagittal reformatted images were obtained, reviewed, and stored. Evaluation of the parenchymal organs is limited without IV contrast. Evaluation of the bowel and mesentery is limited without oral contrast. All CT scans at this medical facility are performed using dose modulation techniques as appropriate to a performed exam including the following: Automated exposure control was utilized; adjustment of the MA and/or KV according to patient size; and use of iterative reconstruction technique. CTDIvol = 21.13 mGy DLP = 1218.74 mGy-cm COMPARISON: None FINDINGS: Lung bases: Lung bases are clear. Liver: Grossly unremarkable in its noncontrast enhanced appearance. No abnormal density or focal lesion identified. Biliary: No calcified gallstones or biliary ductal dilatation. Spleen: Unremarkable. Pancreas: Grossly unremarkable in its noncontrast enhanced appearance. Adrenal glands: Unremarkable. No mass. Kidneys: No hydronephrosis. Small nonobstructing right renal calculi measuring up to 2 mm in greatest dimension. No obstructing calculi. Aorta/Vascular: Moderate atherosclerotic calcification. No abdominal aortic aneurysm. Lymph nodes: Para-aortic lymph nodes measuring up to 2.6 x 0.8 cm, most likely reactive. Small subcentimeter external iliac lymph nodes are seen bilaterally. Bowel/mesentery: Nonspecific nondilated fluid-filled small bowel loops. No small bowel obstruction. Appendix is visualized and appears unremarkable. Scattered colonic diverticula without adjacent inflammatory changes to suggest diverticulitis. Pelvic organs: Grossly unremarkable. Bladder: Unremarkable. No mass. Abdominal wall: No mass or hernia. Bones: Serpiginous areas of sclerosis in the left femoral head, suspected osteonecrosis. No evidence of cortical collapse. Postsurgical changes of prior right total hip arthroplasty. IMPRESSION: 1. Nonspecific nondilated fluid-filled small bowel loops. Findings may be seen with ileus or enteritis in the appropriate clinical setting. No small bowel obstruction. 2. Scattered colonic diverticula without adjacent inflammatory changes to suggest diverticulitis. 3. Small nonobstructing right renal calculi. No hydronephrosis or obstructing calculi. 4. 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 No evidence of cortical collapse at this time. 5. Likely reactive lymph nodes in the retroperitoneum. 6. Additional findings as described above. Labs Test 08/27/25 08:25 08/27/25 07:44 Range/Units Urine Color Light-yellow Yellow Urine Clarity Clear Clear Urine pH 6.0 5.0-9.0 Urine Specific [place] 1.021 1.001-1.035 Urine Protein Negative Negative Urine Ketones Negative Negative Urine Blood Negative Negative /uL Urine Nitrite Negative Negative Urine Bilirubin Negative Negative Urine Urobilinogen Normal Negative mg/dL Urine Leukocyte Esterase Negative Negative /uL Urine RBC 2 0 - 3 /hpf Urine Microscopic WBC 1 0-3 /HPF Urine Squamous Epithelial Cells None seen <5 /hpf Urine Bacteria None seen None Seen /hpf Urine Mucus Few None Seen Urine Glucose Normal Normal mg/dL White Blood Count 7.3 4.4-10.8 10^3/uL Red Blood Count 4.36 L 4.5-5.90 10^6/uL Hemoglobin 14.0 13.5-17.5 g/dL Hematocrit 39.7 L 41.0-53.0 % Mean Corpuscular Volume 90.9 80.0-100.0 fL Mean Corpuscular Hemoglobin 32.1 H 28.0-32.0 pg Mean Corpuscular Hemoglobin Concent 35.3 32.0-36.0 g/dL Red Cell Distribution Width 13.0 11.8-14.3 % Platelet Count 243 140-450 10^3/uL Mean Platelet Volume 6.9 6.9-10.8 fL Neutrophils (%) (Auto) 76.9 37.0-80.0 % Lymphocytes (%) (Auto) 16.0 10.0-50.0 % Monocytes (%) (Auto) 5.8 0.0-12.0 % Eosinophils (%) (Auto) 1.1 0.0-7.0 % Basophils (%) (Auto) 0.2 0.0-2.0 % Neutrophils # (Auto) 5.6 1.6-8.6 10 ^3/uL Lymphocytes # (Auto) 1.2 0.4-5.4 10 ^3/uL Monocytes # (Auto) 0.4 0-1.3 10 ^3/uL Eosinophils # (Auto) 0.1 0-0.8 10 ^3/uL Basophils # (Auto) 0 0-0.2 10 ^3/uL Nucleated Red Blood Cells 0.1 % Sodium Level 138 136-145 mmol/L Potassium Level 3.9 3.5-5.1 mmol/L Chloride Level 99 98-107 mmol/L Carbon Dioxide Level 31 20-31 mmol/L Anion Gap 8 5-15 Blood Urea Nitrogen 21 9-23 mg/dL Creatinine 1.35 H 0.700-1.30 mg/dL Glomerular Filtration Rate Calc 62 >90 mL/min BUN/Creatinine Ratio 15.6 10.0-20.0 Serum Glucose 109 H 74-106 mg/dL Calcium Level 9.9 8.7-10.4 mg/dL Lipase 131 H 12-53 U/L SEPSIS Sepsis Screen Date sepsis recognized/suspect: Aug 27, 2025 Time Sepsis recognized/suspect: 636 Recent Procedure: No On Antibiotic Therapy: No Respiratory Rate >20: No Heart Rate >90: Yes Temp<36 C (96.8 F) or >38.3 C: No SBP <90 or MAP <65 mmHG: No New Acute Mental Status Change: No Is the patient on CPAP, BIPAP,: No Physician Orders Sodium Chloride 0.9% (08/27/25 13:00) Pantoprazole (Protonix) (08/28/25 10:00) Enalapril Tablet (Vasotec Tablet) (08/28/25 10:00) Atorvastatin (Lipitor) (08/27/25 22:00) Basic Metabolic Panel (08/28/25 04:00) Admit (08/27/25 12:54) Hydrocodone-Acet 5/325mg Tab ([place] 5/32 (08/27/25 13:00) Ondansetron Hcl (Zofran) (08/27/25 13:00) Condition: Stable (08/27/25 12:54) Acetaminophen Tablet (Tylenol Tablet) (08/27/25 13:00) Clear Liq Diet (08/27/25 Lunch) Bedrest With Bathroom Privileg (08/27/25 12:54) * [facility] [employer]riers Supervisor (08/27/25 17:04) Vital Signs Date Time Temp Pulse Resp B/P (MAP) Pulse Ox O2 Delivery O2 Flow Rate FiO2 08/27/25 13:00 97.4 100 14 130/83 (99) 98 97.4 08/27/25 12:26 97.9 91 18 131/106 (114) 98 97.9 Laboratory Tests Test 08/27/25 07:44 White Blood Count 7.3 10^3/uL (4.4-10.8) Medications Medications Dose Ordered Sig/Marquez Route Start Time Stop Time Status Last Admin Dose Admin Acetaminophen/ Hydrocodone Bitart 1 tab Q4HP PRN PO 08/27/25 13:00 08/27/25 18:06 1 TAB Hydromorphone HCl 0.5 mg ONCE ONCE IV 08/27/25 07:00 08/27/25 07:01 DC 08/27/25 07:52 0.5 MG Hydromorphone HCl 1 mg ONCE ONCE IV 08/27/25 09:00 08/27/25 09:01 DC 08/27/25 09:08 1 MG Ondansetron HCl 4 mg ONCE ONCE IV 08/27/25 07:00 08/27/25 07:01 DC 08/27/25 07:52 4 MG Pantoprazole Sodium 40 mg ONCE ONCE IV 08/27/25 13:00 08/27/25 13:33 DC 08/27/25 16:53 40 MG Sodium Chloride 1,000 ml @ 100 mls/hr Q10H ONCE IV 08/27/25 13:00 08/27/25 22:59 08/27/25 18:07 100 MLS/HR Sodium Chloride 1,000 ml @ 1,000 mls/hr Q1H ONCE IVB 08/27/25 07:00 08/27/25 07:59 DC 08/27/25 07:42 1,000 MLS/HR Assessment/Plan Assessment/Plan Assessment Acute gastroenteritis Acute abdominal pain Hypertension Plan [facility]ist Maintenance IV fluids Pain management Zofran/Protonix Resume home medications Continue treatment per orders. Plan discussed with: Patient My Orders Orders - OLI AHUJA AGACNP Procedure Category Date Status Time Sodium Chloride 0.9% PHA 08/27/25 In Process 13:00 Pantoprazole PHA 08/28/25 In Process (Protonix) 10:00 Enalapril Tablet PHA 08/28/25 In Process (Vasotec Tablet) 10:00 Atorvastatin (Lipitor) PHA 08/27/25 In Process 22:00 Basic Metabolic Panel LAB 08/28/25 Verified 04:00 Admit ADMIT 08/27/25 Transmitted 12:54 Hydrocodone-Acet PHA 08/27/25 In Process 5/325mg Tab ([place] 13:00 Ondansetron Hcl PHA 08/27/25 In Process (Zofran) 13:00 Condition: Stable MEREDITH 08/27/25 In Process 12:54 Acetaminophen Tablet PHA 08/27/25 In Process (Tylenol Tablet) 13:00 Clear Liq Diet DIET 08/27/25 Transmitted Lunch Bedrest With Bathroom MEREDITH 08/27/25 In Process Privileg 12:54 * [facility] [employer] Supervisor CONS 08/27/25 Transmitted 17:04 Date of Service: Aug 27, 2025 Billing Provider: OLI AHUJA Common Visit Codes: [id number] INP/OBS CARE (MOD) OLI AHUJA Aug 27, 2025 18:31
[2025-08-27 21:00] VITALS: BP 116/83; PULSE 94; RESP 18; TEMP 97.5; O2SAT 96
[2025-08-27] MEDS ORDERED: KETOROLAC TROMETH 30 MG/ML 1ML VIAL IV ONE (21:30)
[2025-08-27] MEDS: MORPHINE SULFATE INJ 2 MG/ml SYRG IV ONE (22:15)
[2025-08-27] MEDS: ATORVASTATIN 20 MG TAB PO SCH (22:47)
[2025-08-28 01:00] VITALS: BP 144/94; PULSE 79; RESP 18; TEMP 97.5; O2SAT 96
[2025-08-28] MEDS ORDERED: BENA40TA71 PO (01:18)
[2025-08-28] MEDS ORDERED: BUSP5TAB51 PO (01:18)
[2025-08-28] MEDS ORDERED: CYCL1POW25 XX (01:18)
[2025-08-28] MEDS ORDERED: CHLO25TA2 PO (01:18)
[2025-08-28] MEDS ORDERED: TART1200 PO (01:18)
[2025-08-28 05:00] VITALS: BP 147/83; PULSE 84; RESP 18; TEMP 98; O2SAT 99
[2025-08-28 06:59] LABS: Anion Gap 6 (5-15); Chloride 106 mmol/L (98-107); Potassium 4.2 mmol/L (3.5-5.1); Sodium 144 mmol/L (136-145)
[2025-08-28 07:00] LABS: Calcium 9.2 mg/dL (8.7-10.4)
[2025-08-28 07:02] LABS: Carbon Dioxide 32 mmol/L (20-31)
[2025-08-28 07:05] LABS: BUN/Creatinine Ratio 10.9 (10.0-20.0); Blood Urea Nitrogen 13 mg/dL (9-23); Glucose 99 mg/dL (74-106)
[2025-08-28 09:20] VITALS: BP 153/98; PULSE 94; RESP 16; TEMP 98.1; O2SAT 94
[2025-08-28] MEDS: PANTOPRAZOLE 40 MG/10 ML VIAL INJ IV SCH (09:55)
[2025-08-28] MEDS: ENALAPRIL MALEATE 2.5 MG TAB PO SCH (09:57)
--- NOTE | 2025-08-28 12:15 | DVHPN2 ---
Subjective The patient is seen and examined at bedside. The patient complained of severe abdominal pain. Reviewed: Care Plan, H&P, Labs, Medications, Previous Orders, Radiology Changes from previous H/P or p: No Changes Objective Vitals Vital Signs Date Time Temp Pulse Resp B/P (MAP) Pulse Ox O2 Delivery O2 Flow Rate FiO2 08/28/25 09:57 128/56 08/28/25 09:20 98.1 94 16 94 98.1 08/28/25 08:00 Room Air* 0 21 Intake/Output Intake and Output 08/28/25 07:00 Intake Total 675 ml Balance 675 ml Intake Oral 675 ml # Voids 1 General Appearance: Alert, Oriented X3, Cooperative, No acute distress HEENT: Atraumatic, EOMI, Mucous membr. moist/pink Neck: Supple Lungs: Clear to auscultation, Normal air movement Cardiovascular: Regular rate, Normal S1, Normal S2, No murmurs, Gallops, Rubs Abdomen: Normal bowel sounds, Soft, No tenderness Neuro: Cranial nerves 3-12 NL Psych/Mental Status: Mental status NL Medications Current Medications Medications Dose Ordered Sig/Marquez Route Start Time Stop Time Status Last Admin Dose Admin Pantoprazole Sodium 40 mg DAILY IV 08/28/25 10:00 08/28/25 09:55 40 MG Enalapril Maleate 2.5 mg DAILY PO 08/28/25 10:00 08/28/25 09:57 2.5 MG Atorvastatin Calcium 20 mg HS PO 08/27/25 22:00 08/27/25 22:47 20 MG Acetaminophen/ Hydrocodone Bitart 1 tab Q4HP PRN PO 08/27/25 13:00 08/28/25 11:34 1 TAB Ondansetron HCl 4 mg Q4HP PRN IV 08/27/25 13:00 Acetaminophen 650 mg Q6HP PRN PO 08/27/25 13:00 Laboratory Results Laboratory Tests 08/27/25 07:44 08/28/25 05:05 Chemistry Test 08/28/25 05:05 Calcium Level 9.2 mg/dL (8.7-10.4) Urinalysis Test 08/27/25 08:25 Urine Color Light-yellow (Yellow) Urine Clarity Clear (Clear) Urine pH 6.0 (5.0-9.0) Urine Specific [place] 1.021 (1.001-1.035) Urine Protein Negative (Negative) Urine Ketones Negative (Negative) Urine Blood Negative /uL (Negative) Urine Nitrite Negative (Negative) Urine Bilirubin Negative (Negative) Urine Urobilinogen Normal mg/dL (Negative) Urine Leukocyte Esterase Negative /uL (Negative) Urine RBC 2 /hpf (0 - 3) Urine Microscopic WBC 1 /HPF (0-3) Urine Squamous Epithelial Cells None seen /hpf (<5) Urine Bacteria None seen /hpf (None Seen) Urine Mucus Few (None Seen) Urine Glucose Normal mg/dL (Normal) Labs and/or images reviewed: Labs reviewed by me Assessment/Plan Assessment/Plan Acute gastroenteritis Acute abdominal pain Hypertension Continuing current management. Waiting for GI specialist to see the patient. Continuing with Protonix. Continuing with Dorr We will add Toradol 30 mg IV Q 8 hours prn for pain This medical document was created using an electronic medical record system with [employer] direct computerized dictation system. Although this document has been carefully reviewed, there may still be some phonetic and typographical errors. These areas are purely typographical due to imperfections of the software programs, and do not reflect any compromise in the patient's medical care. Plan discussed with: Patient Date of Service: Aug 28, 2025 Billing Provider: MYESHA DE SOUZA MD Common Visit Codes: [id number] INP/OBS CARE(HIGH) MYESHA DE SOUZA MD Aug 28, 2025 12:15
[2025-08-28 12:47] VITALS: BP 162/95; PULSE 90; RESP 16; TEMP 98; O2SAT 96
[2025-08-28] MEDS: HYDROcodone-ACET 10/325MG TAB PO PRN (14:29)
[2025-08-28] MEDS ORDERED: HYDROcodone-ACET 5/325MG TAB PO PRN (16:00)
[2025-08-28] MEDS ORDERED: KETOROLAC TROMETH 30 MG/ML 1ML VIAL IV PRN (16:00)
[2025-08-28 17:00] VITALS: BP 133/100; PULSE 93; RESP 16; TEMP 98.6; O2SAT 97
[2025-08-28 21:00] VITALS: BP 139/93; PULSE 79; RESP 17; TEMP 97.8; O2SAT 98
[2025-08-29 01:00] VITALS: BP 126/92; PULSE 80; RESP 18; TEMP 97.5; O2SAT 99
[2025-08-29] MEDS ORDERED: PATIENTS OWN MEDICATION PO SCH (03:00)
[2025-08-29 05:00] VITALS: BP 138/94; PULSE 78; RESP 18; TEMP 98.2; O2SAT 97
--- NOTE | 2025-08-29 14:31 | DVHDS2 ---
Discharge Summary Date of Admission Aug 27, 2025 at 12:54 Date of Discharge: Aug 29, 2025 Admitting Diagnosis Acute gastroenteritis Acute abdominal pain Hypertension Labs/Diagnostic Data: Laboratory Results Test 08/28/25 05:05 08/27/25 08:25 08/27/25 07:44 Sodium Level 144 mmol/L (136-145) Potassium Level 4.2 mmol/L (3.5-5.1) Chloride Level 106 mmol/L (98-107) Carbon Dioxide Level 32 mmol/L (20-31) Anion Gap 6 (5-15) Blood Urea Nitrogen 13 mg/dL (9-23) Creatinine 1.19 mg/dL (0.700-1.30) Glomerular Filtration Rate Calc 72 mL/min (>90) BUN/Creatinine Ratio 10.9 (10.0-20.0) Serum Glucose 99 mg/dL (74-106) Calcium Level 9.2 mg/dL (8.7-10.4) Urine Color Light-yellow (Yellow) Urine Clarity Clear (Clear) Urine pH 6.0 (5.0-9.0) Urine Specific [place] 1.021 (1.001-1.035) Urine Protein Negative (Negative) Urine Ketones Negative (Negative) Urine Blood Negative /uL (Negative) Urine Nitrite Negative (Negative) Urine Bilirubin Negative (Negative) Urine Urobilinogen Normal mg/dL (Negative) Urine Leukocyte Esterase Negative /uL (Negative) Urine RBC 2 /hpf (0 - 3) Urine Microscopic WBC 1 /HPF (0-3) Urine Squamous Epithelial Cells None seen /hpf (<5) Urine Bacteria None seen /hpf (None Seen) Urine Mucus Few (None Seen) Urine Glucose Normal mg/dL (Normal) White Blood Count 7.3 10^3/uL (4.4-10.8) Red Blood Count 4.36 10^6/uL (4.5-5.90) Hemoglobin 14.0 g/dL (13.5-17.5) Hematocrit 39.7 % (41.0-53.0) Mean Corpuscular Volume 90.9 fL (80.0-100.0) Mean Corpuscular Hemoglobin 32.1 pg (28.0-32.0) Mean Corpuscular Hemoglobin Concent 35.3 g/dL (32.0-36.0) Red Cell Distribution Width 13.0 % (11.8-14.3) Platelet Count 243 10^3/uL (140-450) Mean Platelet Volume 6.9 fL (6.9-10.8) Neutrophils (%) (Auto) 76.9 % (37.0-80.0) Lymphocytes (%) (Auto) 16.0 % (10.0-50.0) Monocytes (%) (Auto) 5.8 % (0.0-12.0) Eosinophils (%) (Auto) 1.1 % (0.0-7.0) Basophils (%) (Auto) 0.2 % (0.0-2.0) Neutrophils # (Auto) 5.6 10 ^3/uL (1.6-8.6) Lymphocytes # (Auto) 1.2 10 ^3/uL (0.4-5.4) Monocytes # (Auto) 0.4 10 ^3/uL (0-1.3) Eosinophils # (Auto) 0.1 10 ^3/uL (0-0.8) Basophils # (Auto) 0 10 ^3/uL (0-0.2) Nucleated Red Blood Cells 0.1 % Lipase 131 U/L (12-53) Other Laboratory Tests 08/28/25 05:05 08/27/25 07:44 Brief Hx & Hospital Course: This is a 55 years old male come to emergency department because severe abdominal pain. The patient said he had two days' history of diffuse abdominal pain with nausea and vomiting. Patient said his symptoms started after he ate seafood two days prior to this admission. The patient was admitted. CT abdomen and pelvis was done. It showed: Nonspecific nondilated fluid-filled small bowel loops. Findings may be seen with ileus or enteritis in the appropriate clinical setting. No small bowel obstruction. Scattered colonic diverticula without adjacent inflammatory changes to suggest diverticulitis. Small nonobstructing right renal calculi. No hydronephrosis or obstructing calculi. 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 No evidence of cortical collapse at this time.Likely reactive lymph nodes in the retroperitoneum. The patient was put on IV Toradol as needed for pain. Also [place]. GI was consulted and we are waiting for GI specialist to see the patient however the patient grew inpatient and wanted to leave against medical advice. The patient understands without further workup, his abdominal pain might get worse, even he can get sepsis and from infection for example however the patient adamant that he do not want to wait to GI specialist and he wanted to leave against medical advice. The patient left against medical advice. Physical exam prior to the patient signed out against medical advice show HEENT: Normocephalic atraumatic pupils equal react to light and accommodation. Extraocular muscles intact, conjunctiva pink, oropharynx moist, no thrush, no exudate. Lymphatic: No lymphadenopathy Cardiovascular exam: S1, S2 was heard. No murmurs, rubs, gallops Lung: Clear on auscultation bilaterally, no wheeze, rale, rhonchi. GI: Abdominal soft, nondistended, nontenderness, positive bowel sounds. Extremity: No crepitus, cyanosis, edema. Pedal pulses present bilateral. Full range of motion. Skin: Normal turgor, no rash. Psych: Alert, oriented x3. Neurology: No focal deficits, cranial nerve II to XII grossly intact. This medical document was created using an electronic medical record system with [employer] direct computerized dictation system. Although this document has been carefully reviewed, there may still be some phonetic and typographical errors. These areas are purely typographical due to imperfections of the software programs, and do not reflect any compromise in the patient's medical care. Condition at Discharge: Guarded Final Diagnosis/Problems List Acute gastroenteritis Acute abdominal pain Hypertension Discharge Disposition: AMA Discharge Instruct/Medications Scheduled Atorvastatin Calcium (Lipitor), 1 TAB PO DAILY, (Reported) Benazepril Hcl (Benazepril Hcl), 40 MG PO DAILY, (Reported) Buspirone Hcl (Buspirone Hcl), 10 MG PO BID, (Reported) Chlorthalidone (Chlorthalidone), 25 MG PO DAILY@BREAKFAST, (Reported) Colchicine (Colchicine), 0.6 MG PO BID Cyclobenzaprine Base (Cyclobenzaprine HCl), Unknown Dose XX BID, (Reported) Enalapril Maleate (Enalapril Maleate), 2.5 MG PO DAILY, (Reported) Indomethacin (Indocin), 50 MG RE TID Omeprazole (Gnp Omeprazole), 1 TAB PO DAILY, (Reported) Miscellaneous Medications Tart Moran (Prunus Cerasus) (Tart Moran Ultra), 1,200 MG PO, (Reported) Discharge Statement: "Patient was advised to return to the ER or call 911 if any headaches, dizziness, shortness of breath, chest pain, abdominal pain, bleeding, fevers, or worsening of medical condition. Patient was counseled about treatment plan, medications, possible side effects, patientverbalized understanding. All questions were answered to the best of my ability. This discharge took greater then 30 minutes in planning, reviewing documentation, counseling the patient, and discussing with other team members." ASSESSMENT ASSESSMENT Assessment Date of Service: Aug 29, 2025 Billing Provider: MYESHA DE SOUZA MD Common Visit Codes: [id number] DISCH DAY >30min MYESHA DE SOUZA MD Aug 29, 2025 14:31
== END 2025-08-29 06:45 | disposition left against medical advice (07) | DRG 249 ==
LOC: ER 06:13 → OVERFLOW 12:54 → CENTRAL 17:34
PROVIDERS: ADMIT Internal Medicine; ATTEND Internal Medicine
DX: K52.9 Noninfective gastroenteritis and colitis, unspecified (principal); M87.852 Other osteonecrosis, left femur; E78.5 Hyperlipidemia, unspecified; I10 Essential (primary) hypertension; K21.9 Gastro-esophageal reflux disease without esophagitis; Z53.29 Procedure and treatment not carried out because of patient's decision for other reasons; K57.30 Diverticulosis of large intestine without perforation or abscess without bleeding; N20.0 Calculus of kidney; Z88.6 Allergy status to analgesic agent
CPT/HCPCS: 36415; 74176; 80048; 81001; 83690; 85025; 96374; 96375; G0378; J1885; J2405; J2470

== ENCOUNTER 2025-11-10 06:52 | Inpatient (IN) | payer MEDICAID ==
[2025-11-10] VITALS (8 sets, daily range): BP systolic 148–149; BP diastolic 65–95; PULSE 80–119; RESP 19–20; TEMP 97.9–98.4; O2SAT 95–100
[~2025-11-10] VITALS: Ht 172.7 cm; Wt 101.8 kg
[~2025-11-10 06:52] MED LIST changes: +BENA40TA71 PO; +BUSP5TAB51 PO; +CHLO25TA2 PO; +CYCL1POW25 XX; +TART1200 PO
--- NOTE | 2025-11-10 07:13 | ED.PDOC ---
GI ASSESSMENT HPI Comments 55 year old male with PMHx HTN, HLD, GERD, presents to the ED With a chief compliant of abdominal pain onset today around 00:30. Patient states he woke up around 00:30, experiencing epigastric pain as well as nausea, he had fried chicken for dinner. Patient noticed pain has worsened, came to ED. Denies vomiting, diarrhea, hematemesis, dysuria, hematuria, fever, chills, headache, dizziness, chest pain, shortness of breath, melena, blood in stool. No other symptoms or modifying factors present at this time. Chief Complaint: Abdominal Pain Time Seen by MD: 07:00 Primary Care Provider: CARISSA Howard Notes: Medications, Allergies Allergies: Coded Allergies: Aspirin (Verified Allergy, Unknown, 03/14/14) Home Meds Active Scripts Colchicine (Colchicine) 0.6 Mg Cap, 0.6 MG PO BID, #20 CAP Prov:LAVON PLATT 07/01/22 Indomethacin (Indocin) 50 Mg Sup, 50 MG RE TID, #30 SUPP Prov:LAVON PLATT 07/01/22 Reported Medications Cyclobenzaprine Base (Cyclobenzaprine HCl) 1 Pow Pow, XX BID, POW 08/28/25 Benazepril Hcl (Benazepril Hcl) 40 Mg Tab, 40 MG PO DAILY, TAB 08/28/25 Tart Moran (Prunus Cerasus) (Tart Moran Ultra) 1,200 Mg Cap, 1200 MG PO, CAP 08/28/25 Chlorthalidone (Chlorthalidone) 25 Mg Tab, 25 MG PO DAILY@BREAKFAST, TAB 08/28/25 Buspirone Hcl (Buspirone Hcl) 5 Mg Tab, 10 MG PO BID, TAB 08/28/25 Omeprazole (Gnp Omeprazole) 20 Mg Tab, 1 TAB PO DAILY, #90 TAB 1 Refill 01/13/20 Enalapril Maleate (Enalapril Maleate) 2.5 Mg Tab, 2.5 MG PO DAILY for 30 Days, MG 01/13/20 Atorvastatin Calcium (Lipitor) 20 Mg Tab, 1 TAB PO DAILY, #90 TAB 1 Refill 01/13/20 Information Source: Patient Mode of Arrival: Ambulatory Timing: Hours Duration: Since onset Prehospital treatment: None Quality: Sharp Vomitus: None Severity: Moderate Recent: None Recent Hx of: None Pain Location: Epigastric Modifying Factors: Nothing Associated sign and symptoms: Nausea, Abdominal Pain Past Medical History PAST MEDICAL HISTORY: GERD, High Lipids, HTN Surgical History: Hernia Repair Family History Family History: Reviewed,noncontributory to illness Social History Smoker: Non-Smoker Alcohol: Heavy Drugs: Denies Drug Use Lives In: Home Constitutional: denies: chills, diaphoresis, fatigue, fever, malaise, sweats, weakness, others EENTM: denies: blurred vision, double vision, ear bleeding, ear discharge, ear drainage, ear pain, ear ringing, eye pain, eye redness, hearing loss, mouth pain, mouth swelling, nasal discharge, nose bleeding, nose congestion, nose pain, photophobia, tearing, throat pain, throat swelling, voice changes, others Respiratory: denies: cough, hemoptysis, orthopnea, SOB at rest, shortness of breath, SOB with excertion, stridor, wheezing, others Cardiovascular: denies: chest pain, dizzy spells, diaphoresis, Dyspnea on exertion, edema, irregular heart beat, left arm pain, lightheadedness, palpitations, PND, syncope, others Gastrointestinal: reports: abdominal pain, nausea; denies: abdomen distended, blood streaked bowels, constipated, diarrhea, dysphagia, difficulty swallowing, hematemesis, melena, poor appetite, poor fluid intake, rectal bleeding, rectal pain, vomiting, others Genitourinary: denies: burning, dysuria, flank pain, frequency, hematuria, incontinence, penile discharge, penile sore, pain, testicle pain, testicle swelling, urgency, others Neurological: denies: dizziness, fainting, headache, left sided numbness, left sided weakness, numbness, paresthesia, pre-existing deficit, right sided nu mbness, right sided weakness, seizure, speech problems, tingling, tremors, weakness, others Musculoskeletal: denies: back pain, gout, joint pain, joint swelling, muscle pain, muscle stiffness, neck pain, others Integumetry: denies: bruises, change in color, change in hair/nails, dryness, laceration, lesions, lumps, rash, wounds, others Allergic/Immunocompromised: denies: Difficulty Healing, Frequent Infections, Hives, Itching, others Hematologic/Lymphatic: denies: anemia, blood clots, easy bleeding, easy bruising, swollen glands, others Endocrine: denies: excessive hunger, excessive sweating, excessive thirst, excessive urination, flushing, intolerance to cold, intolerance to heat, unexplained weight gain, unexplained weight loss, others Psychiatric: denies: anxiety, bipolar disorder, depression, hopeless, panic disorder, schizophrenia, sleepless, suicidal, others All Other Systems: Reviewed and Negative Physical Exam General Appearance: Moderate Distress, Normal HEENT: Normal ENT Inspection, Pharynx Normal, TMs Normal Neck: Full Range of Motion, Non-Tender, Normal, Normal Inspection Respiratory: Chest Non-Tender, Lungs Clear, No Accessory Muscle Use, No Respiratory Distress, Normal Breath Sounds Cardiovascular: No Edema, No JVD, No Murmur, No Gallop, Normal Peripheral Pulses, Tachycardia Breast Exam: Deferred Gastrointestinal: Distended, No Organomegaly, No Pulsatile Mass, Normal Bowel Sounds, Soft Genitalia: Deferred Pelvic: Deferred Rectal: Deferred Extremities: No calf tenderness, Normal capillary refill, Normal inspection, Normal range of motion, Non-tender, No pedal edema Musculoskeletal : Apperance: Normal Neurologic: Alert, 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 Was a procedure done?: No GI differential Dx Differential Diagnosis: Constipation, Diverticular disease, Esophagitis, Gastritis/PUD, Gastroenteritis, Dehydration, Food Poisoning, Bacterial, Viral X-Ray, Labs, Meds, VS Vital Signs Date Time Temp Pulse Resp B/P (MAP) Pulse Ox O2 Delivery O2 Flow Rate FiO2 11/10/25 07:40 97.7 110 19 153/103 (120) 95 97.7 11/10/25 07:40 110 19 95 Room Air* 0 21 11/10/25 07:23 119 20 98 Room Air* 0 21 11/10/25 07:23 97.6 119 20 145/92 (109) 98 97.6 11/10/25 06:57 97.7 110 18 148/108 100 97.7 Lab Test 11/10/25 07:20 11/10/25 07:00 Range/Units White Blood Count 9.7 4.4-10.8 10^3/uL Red Blood Count 4.99 4.5-5.90 10^6/uL Hemoglobin 16.6 13.5-17.5 g/dL Hematocrit 47.6 41.0-53.0 % Mean Corpuscular Volume 95.3 80.0-100.0 fL Mean Corpuscular Hemoglobin 33.2 H 28.0-32.0 pg Mean Corpuscular Hemoglobin Concent 34.8 32.0-36.0 g/dL Red Cell Distribution Width 15.0 H 11.8-14.3 % Platelet Count 266 140-450 10^3/uL Mean Platelet Volume 7.5 6.9-10.8 fL Neutrophils (%) (Auto) 79.1 37.0-80.0 % Lymphocytes (%) (Auto) 14.2 10.0-50.0 % Monocytes (%) (Auto) 4.6 0.0-12.0 % Eosinophils (%) (Auto) 1.6 0.0-7.0 % Basophils (%) (Auto) 0.5 0.0-2.0 % Neutrophils # (Auto) 7.7 1.6-8.6 10 ^3/uL Lymphocytes # (Auto) 1.4 0.4-5.4 10 ^3/uL Monocytes # (Auto) 0.4 0-1.3 10 ^3/uL Eosinophils # (Auto) 0.2 0-0.8 10 ^3/uL Basophils # (Auto) 0 0-0.2 10 ^3/uL Nucleated Red Blood Cells 0.1 % Sodium Level 140 136-145 mmol/L Potassium Level 4.1 3.5-5.1 mmol/L Chloride Level 103 98-107 mmol/L Carbon Dioxide Level 28 20-31 mmol/L Anion Gap 9 5-15 Blood Urea Nitrogen 16 9-23 mg/dL Creatinine 1.56 H 0.700-1.30 mg/dL Glomerular Filtration Rate Calc 52 >90 mL/min BUN/Creatinine Ratio 10.3 10.0-20.0 Serum Glucose 108 H 74-106 mg/dL Calcium Level 10.0 8.7-10.4 mg/dL Lipase 53 12-53 U/L Urine Color Light-yellow Yellow Urine Clarity Clear Clear Urine pH 5.5 5.0-9.0 Urine Specific Media 1.020 1.001-1.035 Urine Protein Negative Negative Urine Ketones Negative Negative Urine Blood Negative Negative /uL Urine Nitrite Negative Negative Urine Bilirubin Negative Negative Urine Urobilinogen Normal Negative mg/dL Urine Leukocyte Esterase Trace Negative /uL Urine RBC 1 0 - 3 /hpf Urine Microscopic WBC 3 0-3 /HPF Urine Squamous Epithelial Cells None seen <5 /hpf Urine Bacteria None seen None Seen /hpf Urine Glucose Normal Normal mg/dL Current Medications Medications (Trade) Dose Ordered Sig/Marquez Route Start Time Stop Time Status Last Admin Ondansetron HCl (Zofran) 4 mg ONCE ONCE IV 11/10/25 07:15 11/10/25 07:16 DC 11/10/25 07:55 Sodium Chloride 1,000 ml @ 1,000 mls/hr Q1H ONCE IV 11/10/25 07:15 11/10/25 08:14 DC 11/10/25 07:55 Patient alert. Complaining of abdominal pain. Vitals stable. Answering questions. Abdomen is distended. Establish intravenous access. Was given fluids. Was given Zofran. Was given pain medication. Explained to the patient. Continue monitoring. [place] [id number] Ph: [phone] DIAGNOSTIC IMAGING Diagnostic Imaging Report : [id number] Signed PATIENT: NEYMAR AREVALO IACCT: [id number] UNIT: [id number] : 1970 LOC: ER ROOM / BED: / AGE / SEX: 55 / M ADM STATUS: REG ER SERVICE 07 ORDERING PHYSICIAN: MICHELE RIGGINS MD PROCEDURE(s): ABPL - CT AB PEL WO CON-NO ORAL OR IV REASON: colitis ORDER NUMBER(s): [id number], ACCESSION NUMBER(s): [id number] EXAM: CT CT AB PEL WO CON-NO ORAL OR IV History: Colitis. Comparison Study: CT CT AB PEL WO CON-NO ORAL OR IV on DOS: 08/27/25 TECHNIQUE: Multidetector spiral CT of the abdomen and pelvis was performed from lung bases to pubic symphysis. Imaging was performed without intravenous contrast. Coronal and sagittal multiplanar reformats were obtained from the axial data set by the technologist. Radiation Dose : 1. Abdomen/Pelvis: CTDIvol 20.7 mGy, DLP 1246.3 mGy*cm. FINDINGS: Evaluation of vasculature and solid organs is limited due to lack of intravenous contrast use. Lung Bases: Lung bases are clear. Visualized portions of the heart and pericardium are unremarkable. Liver: The liver is normal in size. No focal lesions. Diffusely hypoattenuating liver parenchyma consistent with hepatic steatosis. Gallbladder and Biliary Tree: The gallbladder is unremarkable. No intrahepatic or extrahepatic biliary ductal dilatation. Spleen: Unremarkable Pancreas: The pancreas is grossly unremarkable. Adrenal Glands: Unremarkable Kidneys: Punctate nonobstructive right renal calculus. Left kidney is unremarkable. GI tract: The stomach is grossly normal in appearance. There is mucosal th ickening in the distal ileum with Fat stranding. Scattered colonic diverticulosis without acute diverticulitis. No acute appendicitis. Peritoneum/mesentery/retroperitoneum. No evidence of free intraperitoneal air. No ascites. No evidence of suspicious lymphadenopathy. Abdominal Wall: Unremarkable. Vasculature: The visualized abdominal aorta is normal in size and caliber. Evaluation of abdominal and pelvic vessels is limited due to lack of intravenous contrast. Urinary Bladder: Underdistended urinary bladder. Pelvic Organs: Unremarkable Musculoskeletal: No aggressive focal bony lesions, acute fractures or dislocation. Multilevel lumbar spondylosis. Intervertebral disc degeneration at L4-L5 and L5-S1. There is sclerosis in the left femoral head reflecting avascular necrosis. Right hip prosthesis noted. IMPRESSION: 1. Enteritis involving the terminal ileum. No bowel obstruction. 2. Colonic diverticulosis without acute diverticulitis. 3. Nonobstructive right renal calculus. 4. Avascular necrosis of the left femoral head. No articular collapse. ATED BY: FLORIDA HENRY MD DICTATED DATE/TIME: 11/10/25807 SIGNED BY: FLORIDA HENRY MD SIGNED DATE/TIME: 11/10/25807 CC: Time of 1ST Reevaluation: 07:30 Reevaluation 1ST: Unchanged Patient Education/Counseling: Diagnosis, Treatment, Prognosis Family Education/Counseling: No Family Present SEPSIS Sepsis Screen Date sepsis recognized/suspect: Nov 10, 2025 Time Sepsis recognized/suspect: 0657 Recent Procedure: No On Antibiotic Therapy: No Respiratory Rate >20: No Heart Rate >90: No Temp<36 C (96.8 F) or >38.3 C: No SBP <90 or MAP <65 mmHG: No New Acute Mental Status Change: No Is the patient on CPAP, BIPAP,: No Physician Orders Ct Ab Pel Wo Con-No Oral Or Iv (11/10/25 07:07) *Consult Dr. Leo Regan (11/10/25 09:13) Vital Signs Date Time Temp Pulse Resp B/P (MAP) Pulse Ox O2 Delivery O2 Flow Rate FiO2 11/10/25 07:40 97.7 110 19 153/103 (120) 95 97.7 11/10/25 07:40 110 19 95 Room Air* 0 21 11/10/25 07:23 119 20 98 Room Air* 0 21 11/10/25 07:23 97.6 119 20 145/92 (109) 98 97.6 11/10/25 06:57 97.7 110 18 148/108 100 97.7 Laboratory Tests Test 11/10/25 07:20 White Blood Count 9.7 10^3/uL (4.4-10.8) Medications Medications Dose Ordered Sig/Marquez Route Start Time Stop Time Status Last Admin Dose Admin Ondansetron HCl 4 mg ONCE ONCE IV 11/10/25 07:15 11/10/25 07:16 DC 11/10/25 07:55 Sodium Chloride 1,000 ml @ 1,000 mls/hr Q1H ONCE IV 11/10/25 07:15 11/10/25 08:14 DC 11/10/25 07:55 Departure 1 Departure Time of Disposition: 07:23 Impression: Primary Impression: Hypertensive urgency Additional Impression: Acute abdominal pain Disposition: 09 ADMITTED INPATIENT Admit to: Med Surg Condition: Guarded Critical Care Note Critical Care Time?: No Stability Stability form required: No Heart Score Heart Score: Heart Score Response (Comments) Value History Slightly Suspicious 0 EKG Normal 0 Age 45-64 1 Risk Factors >3 or Hx ASHD 2 Troponin Normal limit 0 Total 3 I personally scribed for MICHELE RIGGINS MD ([email or web address]) on 11/10/25 at 07:13. Electronically submitted by Sherrell Nava ([email or web address]). I personally scribed for MICHELE RIGGINS MD ([email or web address]) on 12/30/25 at 09:15. Electronically submitted by Sherrell Nava ([email or web address]). MICHELE RIGGINS MD Nov 10, 2025 07:13
[2025-11-10] MEDS: MORPHINE SULFATE 4 MG/ML SYR/VIAL IV ONE (07:15)
[2025-11-10 07:36] LABS: Hematocrit 47.6 % (41.0-53.0); Hemoglobin 16.6 g/dL (13.5-17.5); Mean Corpuscular Hemoglobin 33.2 pg (28.0-32.0); Mean Corpuscular Volume 95.3 fL (80.0-100.0); Nucleated Red Blood Cells % 0.1 %
[2025-11-10 07:37] LABS: Urine Protein, UAD Negative (Negative)
[2025-11-10 07:41] LABS: Chloride 103 mmol/L (98-107); Potassium 4.1 mmol/L (3.5-5.1); Sodium 140 mmol/L (136-145)
[2025-11-10 07:42] LABS: Anion Gap 9 (5-15); Calcium 10.0 mg/dL (8.7-10.4); Carbon Dioxide 28 mmol/L (20-31)
[2025-11-10 07:47] LABS: BUN/Creatinine Ratio 10.3 (10.0-20.0); Blood Urea Nitrogen 16 mg/dL (9-23)
[2025-11-10 07:48] LABS: Glucose 108 mg/dL (74-106)
[2025-11-10] MEDS: ONDANSETRON HCL 4 MG/2 ML VIAL IV ONE (07:55)
[2025-11-10] MEDS: SODIUM CHLORIDE 0.9% 1,000 ML IV ONE ×2 (07:55→12:30)
--- NOTE | 2025-11-10 08:10 | DVH ---
EXAM: CT CT AB PEL WO CON-NO ORAL OR IV History: Colitis. Comparison Study: CT CT AB PEL WO CON-NO ORAL OR IV on DOS: 08/27/25 TECHNIQUE: Multidetector spiral CT of the abdomen and pelvis was performed from lung bases to pubic symphysis. Imaging was performed without intravenous contrast. Coronal and sagittal multiplanar reformats were obtained from the axial data set by the technologist. Radiation Dose : 1. Abdomen/Pelvis: CTDIvol 20.7 mGy, DLP 1246.3 mGy*cm. FINDINGS: Evaluation of vasculature and solid organs is limited due to lack of intravenous contrast use. Lung Bases: Lung bases are clear. Visualized portions of the heart and pericardium are unremarkable. Liver: The liver is normal in size. No focal lesions. Diffusely hypoattenuating liver parenchyma consistent with hepatic steatosis. Gallbladder and Biliary Tree: The gallbladder is unremarkable. No intrahepatic or extrahepatic biliary ductal dilatation. Spleen: Unremarkable Pancreas: The pancreas is grossly unremarkable. Adrenal Glands: Unremarkable Kidneys: Punctate nonobstructive right renal calculus. Left kidney is unremarkable. GI tract: The stomach is grossly normal in appearance. There is mucosal thickening in the distal ileum with Fat stranding. Scattered colonic diverticulosis without acute diverticulitis. No acute appendicitis. Peritoneum/mesentery/retroperitoneum. No evidence of free intraperitoneal air. No ascites. No evidence of suspicious lymphadenopathy. Abdominal Wall: Unremarkable. Vasculature: The visualized abdominal aorta is normal in size and caliber. Evaluation of abdominal and pelvic vessels is limited due to lack of intravenous contrast. Urinary Bladder: Underdistended urinary bladder. Pelvic Organs: Unremarkable Musculoskeletal: No aggressive focal bony lesions, acute fractures or dislocation. Multilevel lumbar spondylosis. Intervertebral disc degeneration at L4-L5 and L5-S1. There is sclerosis in the left femoral head reflecting avascular necrosis. Right hip prosthesis noted. IMPRESSION: 1. Enteritis involving the terminal ileum. No bowel obstruction. 2. Colonic diverticulosis without acute diverticulitis. 3. Nonobstructive right renal calculus. 4. Avascular necrosis of the left femoral head. No articular collapse.
[2025-11-10] MEDS: KETOROLAC TROMETH 30 MG/ML 1ML VIAL IV ONE (08:15)
[2025-11-10 08:57] LABS: Lipase 53 U/L (12-53)
[2025-11-10] MEDS ORDERED: ONDANSETRON HCL 4 MG/2 ML VIAL IV PRN (11:00)
[2025-11-10] MEDS ORDERED: ACETAMINOPHEN 325 MG TAB PO PRN (11:00)
[2025-11-10] MEDS ORDERED: DOCUSATE SOD 100 MG CAP PO PRN (11:00)
[2025-11-10] MEDS ORDERED: BUSP15TA90 PO (11:09)
[2025-11-10] MEDS ORDERED: RAME8TAB26 PO (11:09)
[2025-11-10] MEDS ORDERED: METOCLOPRAMIDE HCL 5MG/ml INJ 2ml VIAL IV PRN (11:15)
[2025-11-10] MEDS ORDERED: hydrALAZINE HCL 20 MG/ML VL IV PRN (11:15)
--- NOTE | 2025-11-10 11:22 | DVHHP2 ---
History of Present Illness Reason for Visit: Abdominal pain History of Present Illness Kaushik Rosales is a 55-year-old male with past medical history of anxiety, insomnia, hypertension, hyperlipidemia, and diverticulosis, who came to the hospital for abdominal pain with associated nausea and vomiting. Patient states his abdominal pain, nausea, & vomiting began last night about 0030. He states he was asleep and it woke him up. He states it continued until 0500 when he decided to come into the hospital. Cardiovascular: HTN, hyperipidemia Psych: Anxiety Past Surgical History: Hernia Repair, Other (bilateral knees), Total hip replacement (right) Smoke: No ALCOHOL: heavy (3-4 beers/day) Drugs: None Lives: with Family Domestic Violence: Neg Review of Systems Constitutional: No: Fever, Chills, Sweats, Weakness, Malaise, Other Eyes: No: Pain, Vision change, Conjunctivae inflammation, Eyelid inflammation, Other, Redness ENT: No: Ear pain, Ear discharge, Nose pain, Nose discharge, Nose congestion, Mouth pain, Mouth swelling, Throat pain, Throat swelling, Other Respiratory: No: Cough, Dry, Shortness of breath, SOB with excertion, Wheezing, Hemoptysis, Pleuritic Pain, Sputum, Wheezing, Other Cardiovascular: No: Chest Pain, Palpitations, Orthopnea, Paroxysmal Noc. Dyspnea, Edema, Lt Headedness, Other Gastrointestinal: Nausea, Vomiting, Abdominal Pain; No: Diarrhea, Constipation, Melena, Hematochezia, Other Genitourinary: No Dysuria, No Frequency, No Incontinence, No Hematuria, No Retention, No Other Musculoskeletal: No: other, neck pain, shoulder pain, arm pain, back pain, hand pain, leg pain, foot pain Skin: No: Rash, Lesions, Jaundice, Bruising, Other Neurological: No: Weakness, Numbness, Incoordination, Change in speech, Confusion, Seizures, Other Allergies: Coded Allergies: Aspirin (Verified Allergy, Unknown, 03/14/14) Medications Current Medications Medications Dose Ordered Sig/Marquez Route Start Time Stop Time Status Last Admin Dose Admin Acetaminophen/ Hydrocodone Bitart 1 tab Q4HP PRN PO 11/10/25 11:00 UNV Ondansetron HCl 4 mg Q4HP PRN IV 11/10/25 11:00 UNV Docusate Sodium 100 mg BIDPRN PRN PO 11/10/25 11:00 UNV Acetaminophen 650 mg Q6HP PRN PO 11/10/25 11:00 UNV Atorvastatin Calcium 20 mg DAILY PO 11/11/25 10:00 UNV Patient Own Medication 40 mg DAILY PO 11/11/25 10:00 UNV Patient Own Medication 1 tab DAILY PO 11/11/25 10:00 UNV Exam Vital Signs Vital Signs Date Time Temp Pulse Resp B/P (MAP) Pulse Ox O2 Delivery O2 Flow Rate FiO2 11/10/25 09:38 110 17 154/97 (116) 96 11/10/25 07:40 97.7 97.7 11/10/25 07:40 Room Air* 0 21 General Appearance: Alert, Oriented X3, Cooperative, mild distress HEENT: Atraumatic, PERRLA, Mucous membr. moist/pink Cardiovascular: Normal S1, Normal S2, Other (ST-SR) Abdominal: Normal bowel sounds, Soft, No tenderness Extremities: No clubbing, No cyanosis, No edema, Normal pulses Skin: No rashes, No breakdown, No significant lesion Neuro: Normal gait, Normal speech, Strength at 5/5 X4 ext Psych/Mental Status: Mental status NL, Mood NL Labs/Xrays Labs Test 11/10/25 07:20 11/10/25 07:00 Range/Units White Blood Count 9.7 4.4-10.8 10^3/uL Red Blood Count 4.99 4.5-5.90 10^6/uL Hemoglobin 16.6 13.5-17.5 g/dL Hematocrit 47.6 41.0-53.0 % Mean Corpuscular Volume 95.3 80.0-100.0 fL Mean Corpuscular Hemoglobin 33.2 H 28.0-32.0 pg Mean Corpuscular Hemoglobin Concent 34.8 32.0-36.0 g/dL Red Cell Distribution Width 15.0 H 11.8-14.3 % Platelet Count 266 140-450 10^3/uL Mean Platelet Volume 7.5 6.9-10.8 fL Neutrophils (%) (Auto) 79.1 37.0-80.0 % Lymphocytes (%) (Auto) 14.2 10.0-50.0 % Monocytes (%) (Auto) 4.6 0.0-12.0 % Eosinophils (%) (Auto) 1.6 0.0-7.0 % Basophils (%) (Auto) 0.5 0.0-2.0 % Neutrophils # (Auto) 7.7 1.6-8.6 10 ^3/uL Lymphocytes # (Auto) 1.4 0.4-5.4 10 ^3/uL Monocytes # (Auto) 0.4 0-1.3 10 ^3/uL Eosinophils # (Auto) 0.2 0-0.8 10 ^3/uL Basophils # (Auto) 0 0-0.2 10 ^3/uL Nucleated Red Blood Cells 0.1 % Sodium Level 140 136-145 mmol/L Potassium Level 4.1 3.5-5.1 mmol/L Chloride Level 103 98-107 mmol/L Carbon Dioxide Level 28 20-31 mmol/L Anion Gap 9 5-15 Blood Urea Nitrogen 16 9-23 mg/dL Creatinine 1.56 H 0.700-1.30 mg/dL Glomerular Filtration Rate Calc 52 >90 mL/min BUN/Creatinine Ratio 10.3 10.0-20.0 Serum Glucose 108 H 74-106 mg/dL Calcium Level 10.0 8.7-10.4 mg/dL Lipase 53 12-53 U/L Urine Color Light-yellow Yellow Urine Clarity Clear Clear Urine pH 5.5 5.0-9.0 Urine Specific [place] 1.020 1.001-1.035 Urine Protein Negative Negative Urine Ketones Negative Negative Urine Blood Negative Negative /uL Urine Nitrite Negative Negative Urine Bilirubin Negative Negative Urine Urobilinogen Normal Negative mg/dL Urine Leukocyte Esterase Trace Negative /uL Urine RBC 1 0 - 3 /hpf Urine Microscopic WBC 3 0-3 /HPF Urine Squamous Epithelial Cells None seen <5 /hpf Urine Bacteria None seen None Seen /hpf Urine Glucose Normal Normal mg/dL EXAM: CT CT AB PEL WO CON-NO ORAL OR IV FINDINGS: Evaluation of vasculature and solid organs is limited due to lack of intravenous contrast use. Lung Bases: Lung bases are clear. Visualized portions of the heart and pericardium are unremarkable. Liver: The liver is normal in size. No focal lesions. Diffusely hypoattenuating liver parenchyma consistent with hepatic steatosis. Gallbladder and Biliary Tree: The gallbladder is unremarkable. No intrahepatic or extrahepatic biliary ductal dilatation. Spleen: Unremarkable Pancreas: The pancreas is grossly unremarkable. Adrenal Glands: Unremarkable Kidneys: Punctate nonobstructive right renal calculus. Left kidney is unremarkable. GI tract: The stomach is grossly normal in appearance. There is mucosal thickening in the distal ileum with Fat stranding. Scattered colonic diverticulosis without acute diverticulitis. No acute appendicitis. Peritoneum/mesentery/retroperitoneum. No evidence of free intraperitoneal air. No ascites. No evidence of suspicious lymphadenopathy. Abdominal Wall: Unremarkable. Vasculature: The visualized abdominal aorta is normal in size and caliber. Evaluation of abdominal and pelvic vessels is limited due to lack of intravenous contrast. Urinary Bladder: Underdistended urinary bladder. Pelvic Organs: Unremarkable Musculoskeletal: No aggressive focal bony lesions, acute fractures or dislocatio n. Multilevel lumbar spondylosis. Intervertebral disc degeneration at L4-L5 and L5-S1. There is sclerosis in the left femoral head reflecting avascular necrosis. Right hip prosthesis noted. IMPRESSION: 1. Enteritis involving the terminal ileum. No bowel obstruction. 2. Colonic diverticulosis without acute diverticulitis. 3. Nonobstructive right renal calculus. 4. Avascular necrosis of the left femoral head. No articular collapse. SEPSIS Sepsis Screen Date sepsis recognized/suspect: Nov 10, 2025 Time Sepsis recognized/suspect: 0740 Recent Procedure: No On Antibiotic Therapy: No Respiratory Rate >20: No Heart Rate >90: No Temp<36 C (96.8 F) or >38.3 C: No SBP <90 or MAP <65 mmHG: No New Acute Mental Status Change: No Is the patient on CPAP, BIPAP,: No Physician Orders Ct Ab Pel Wo Con-No Oral Or Iv (11/10/25 07:07) *Consult Dr. Leo Regan (11/10/25 09:13) Admit (11/10/25 10:59) Code Status (11/10/25 10:59) Hydrocodone-Acet 5/325mg Tab ([place] 5/32 (11/10/25 11:00) Ondansetron Hcl (Zofran) (11/10/25 11:00) Docusate Sodium Capsule (Colace Capsule) (11/10/25 11:00) Complete Blood Count (11/11/25 04:00) Comprehensive Metabolic Panel (11/11/25 04:00) Condition: Serious (11/10/25 10:59) Acetaminophen Tablet (Tylenol Tablet) (11/10/25 11:00) Clear Liq Diet (11/10/25 Lunch) Atorvastatin (Lipitor) (11/11/25 10:00) (Nf) Benazepril Hcl (11/11/25 10:00) (Nf) Omeprazole (Gnp Omeprazole) (11/11/25 10:00) Vital Signs Date Time Temp Pulse Resp B/P (MAP) Pulse Ox O2 Delivery O2 Flow Rate FiO2 11/10/25 09:38 110 17 154/97 (116) 96 11/10/25 07:40 97.7 110 19 153/103 (120) 95 97.7 11/10/25 07:40 110 19 95 Room Air* 0 21 11/10/25 07:23 119 20 98 Room Air* 0 21 11/10/25 07:23 97.6 119 20 145/92 (109) 98 97.6 11/10/25 06:57 97.7 110 18 148/108 100 97.7 Laboratory Tests Test 11/10/25 07:20 White Blood Count 9.7 10^3/uL (4.4-10.8) Medications Medications Dose Ordered Sig/Marquez Route Start Time Stop Time Status Last Admin Dose Admin Ketorolac Tromethamine 30 mg ONCE ONCE IV 11/10/25 08:15 11/10/25 08:16 DC 11/10/25 10:47 30 MG Ondansetron HCl 4 mg ONCE ONCE IV 11/10/25 07:15 11/10/25 07:16 DC 11/10/25 07:55 4 MG Sodium Chloride 1,000 ml @ 1,000 mls/hr Q1H ONCE IV 11/10/25 07:15 11/10/25 08:14 DC 11/10/25 07:55 1,000 MLS/HR Assessment/Plan Assessment/Plan Assessment: Gastroenteritis, Dehydration, Acute kidney injury, Diverticulosis, Uncontrolled hypertension, Hyperlipidemia, Plan: Admit to Med-Surg, IV hydration, IV antibiotics, IV antiemetics, Clear liquid diet, advance as tolerated, PRN antihypertensives, Home medications reconciled, Plan discussed with: Patient, Spouse My Orders Orders - MEGAN WADSWORTH Procedure Category Date Status Time Admit ADMIT 11/10/25 Transmitted 10:59 Code Status CODE 11/10/25 Transmitted 10:59 Hydrocodone-Acet PHA 11/10/25 Logged 5/325mg Tab ([place] 11:00 Ondansetron Hcl PHA 11/10/25 Transmitted (Zofran) 11:00 Docusate Sodium PHA 11/10/25 Transmitted Capsule (Colace 11:00 Complete Blood Count LAB 11/11/25 Verified 04:00 Comprehensive LAB 11/11/25 Verified Metabolic Panel 04:00 Condition: Serious MEREDITH 11/10/25 In Process 10:59 Acetaminophen Tablet PHA 11/10/25 Transmitted (Tylenol Tablet) 11:00 Clear Liq Diet DIET 11/10/25 Transmitted Lunch Atorvastatin (Lipitor) PHA 11/11/25 Transmitted 10:00 (Nf) Benazepril Hcl PHA 11/11/25 Transmitted 10:00 (Nf) Omeprazole (Gnp PHA 11/11/25 Transmitted Omeprazole) 10:00 Date of Service: Nov 10, 2025 Billing Provider: MEGAN WADSWORTH Common Visit Codes: [id number] INP/OBS CARE (MOD) MEGAN WADSWORTH Nov 10, 2025 11:22
[2025-11-10] MEDS: PANTOPRAZOLE 40 MG/10 ML VIAL INJ IV ONE (11:58)
[2025-11-10] MEDS: BENAZEPRIL HCL 10 MG TAB PO ONE (12:03)
[2025-11-10] MEDS: HYDROcodone-ACET 5/325MG TAB PO PRN (12:40)
--- NOTE | 2025-11-10 19:59 | DVHINCON2 ---
Consult Note Consult Consult Note Consulting Service: Orthopedics Reason for Consult: Incidental finding of left hip avascular necrosis (AVN) on abdominal CT S SUBJECTIVE Patient was admitted to the Emergency Department for abdominal pain. As part of the ER workup, a CT abdomen/pelvis was completed, which incidentally demonstrated left hip avascular necrosis without evidence of collapse. Orthopedics was consulted for evaluation. On interview today, the patient denies any left hip pain. He denies groin pain, thigh pain, knee pain, injury, fall, slip, or trauma. He reports no difficulty w ith ambulation and no functional limitations. Patient also has a history of right total hip arthroplasty noted on imaging. He denies any right hip pain and reports he already follows routinely with an orthopedist for his right hip. no injury, trauma, fall, catching locking or instability of bilateral hip reported. No other joint pain reported. O OBJECTIVE General Alert, oriented, no acute distress Left Hip Examination Range of motion: Full and intact No groin pain with exam Negative straight leg raise Negative log roll Negative VALERY Negative FADIR No tenderness to palpation over the groin, greater trochanter, or surrounding structures Gait Ambulates weight-bearing without difficulty No antalgic gait No assistive devices used Right Hip Status post total hip arthroplasty No pain reported No functional complaints Neurovascular Grossly neurovascularly intact bilaterally IMAGING CT Abdomen/Pelvis (Reviewed): Incidental finding of left hip avascular necrosis without collapse Right total hip arthroplasty hardware well aligned, no losening No acute orthopedic findings A ASSESSMENT Incidental left hip avascular necrosis, asymptomatic, no collapse Status post right total hip arthroplasty, asymptomatic No clinical evidence of acute left or right hip pathology at this time P PLAN No acute orthopedic intervention indicated at this time Patient advised to follow up with orthopedics if he develops left hip pain or functional symptoms Continue routine follow-up with his established orthopedist for right total hip arthroplasty surveillance ER return precautions reviewed Patient verbalized understanding and agrees with the plan Plan discussed with: Patient, Other (bedside nurse) Visit Coding Surgery Date of Service if different f: Nov 10, 2025 Billing Provider: NARINDER ROMERO Surgery Visit Codes: 42993 - INP CONSULT <55 MIN NARINDER ROMERO Nov 10, 2025 19:59
[2025-11-11] VITALS (7 sets, daily range): BP systolic 144–158; BP diastolic 84–99; PULSE 72–94; RESP 17–20; TEMP 97.5–98.3; O2SAT 96–98
[2025-11-11] MEDS: PANTOPRAZOLE 40 MG TAB PO SCH (05:09)
[2025-11-11 08:58] LABS: Hematocrit 42.6 % (41.0-53.0); Hemoglobin 14.4 g/dL (13.5-17.5); Mean Corpuscular Hemoglobin 32.2 pg (28.0-32.0); Mean Corpuscular Volume 95.1 fL (80.0-100.0); Nucleated Red Blood Cells % 0.5 %
[2025-11-11 09:01] LABS: Anion Gap 7 (5-15)
[2025-11-11 09:09] LABS: BUN/Creatinine Ratio 7.7 (10.0-20.0); Carbon Dioxide 28 mmol/L (20-31); Chloride 107 mmol/L (98-107); Potassium 4.6 mmol/L (3.5-5.1); Sodium 142 mmol/L (136-145)
[2025-11-11 09:10] LABS: Alanine Aminotransferase 14 U/L (7-40); Albumin 4.2 g/dL (3.2-4.8); Alkaline Phosphatase 78 U/L (46-116); Bilirubin, Total 0.5 mg/dL (0.2-1.0); Blood Urea Nitrogen 11 mg/dL (9-23); Calcium 9.3 mg/dL (8.7-10.4); Glucose 93 mg/dL (74-106); Total Protein 6.5 g/dL (5.7-8.2)
[2025-11-11] MEDS: ATORVASTATIN 20 MG TAB PO SCH (10:34)
[2025-11-11] MEDS: BENAZEPRIL HCL 10 MG TAB PO SCH (10:38)
--- NOTE | 2025-11-11 17:03 | DVHDS2 ---
Discharge Summary Date of Admission Nov 10, 2025 at 10:59 Date of Discharge: Nov 11, 2025 Labs/Diagnostic Data: Laboratory Results Test 11/11/25 08:19 11/10/25 07:20 11/10/25 07:00 White Blood Count 5.3 10^3/uL (4.4-10.8) Red Blood Count 4.48 10^6/uL (4.5-5.90) Hemoglobin 14.4 g/dL (13.5-17.5) Hematocrit 42.6 % (41.0-53.0) Mean Corpuscular Volume 95.1 fL (80.0-100.0) Mean Corpuscular Hemoglobin 32.2 pg (28.0-32.0) Mean Corpuscular Hemoglobin Concent 33.9 g/dL (32.0-36.0) Red Cell Distribution Width 14.6 % (11.8-14.3) Platelet Count 232 10^3/uL (140-450) Mean Platelet Volume 7.7 fL (6.9-10.8) Neutrophils (%) (Auto) 66.8 % (37.0-80.0) Lymphocytes (%) (Auto) 22.8 % (10.0-50.0) Monocytes (%) (Auto) 7.2 % (0.0-12.0) Eosinophils (%) (Auto) 2.7 % (0.0-7.0) Basophils (%) (Auto) 0.5 % (0.0-2.0) Neutrophils # (Auto) 3.5 10 ^3/uL (1.6-8.6) Lymphocytes # (Auto) 1.2 10 ^3/uL (0.4-5.4) Monocytes # (Auto) 0.4 10 ^3/uL (0-1.3) Eosinophils # (Auto) 0.1 10 ^3/uL (0-0.8) Basophils # (Auto) 0 10 ^3/uL (0-0.2) Nucleated Red Blood Cells 0.5 % Sodium Level 142 mmol/L (136-145) Potassium Level 4.6 mmol/L (3.5-5.1) Chloride Level 107 mmol/L (98-107) Carbon Dioxide Level 28 mmol/L (20-31) Anion Gap 7 (5-15) Blood Urea Nitrogen 11 mg/dL (9-23) Creatinine 1.42 mg/dL (0.700-1.30) Glomerular Filtration Rate Calc 58 mL/min (>90) BUN/Creatinine Ratio 7.7 (10.0-20.0) Serum Glucose 93 mg/dL (74-106) Calcium Level 9.3 mg/dL (8.7-10.4) Total Bilirubin 0.5 mg/dL (0.2-1.0) Aspartate Amino Transferase (AST) 22 U/L (13-40) Alanine Aminotransferase (ALT) 14 U/L (7-40) Alkaline Phosphatase 78 U/L (46-116) Total Protein 6.5 g/dL (5.7-8.2) Albumin 4.2 g/dL (3.2-4.8) Lipase 53 U/L (12-53) Urine Color Light-yellow (Yellow) Urine Clarity Clear (Clear) Urine pH 5.5 (5.0-9.0) Urine Specific [place] 1.020 (1.001-1.035) Urine Protein Negative (Negative) Urine Ketones Negative (Negative) Urine Blood Negative /uL (Negative) Urine Nitrite Negative (Negative) Urine Bilirubin Negative (Negative) Urine Urobilinogen Normal mg/dL (Negative) Urine Leukocyte Esterase Trace /uL (Negative) Urine RBC 1 /hpf (0 - 3) Urine Microscopic WBC 3 /HPF (0-3) Urine Squamous Epithelial Cells None seen /hpf (<5) Urine Bacteria None seen /hpf (None Seen) Urine Glucose Normal mg/dL (Normal) Other Laboratory Tests 11/11/25 08:19 Brief Hx & Hospital Course: 50-year-old male with a known history of hypertension, dyslipidemia, GERD who initially presented to the hospital with the abdominal pain nausea after she ate some fried chicken found to have terminal ileitis. Patient was started on IV hydration currently tolerating diet. Patient's has a incidental finding of avascular necrosis of the left femoral head but patient denies any hip pain. Orthopedics was consulted who recommended follow up with the Orthopedics as an outpatient only if there was left hip pain. Patient is currently being discharged under stable condition. Condition at Discharge: Stable Final Diagnosis/Problems List 1. Terminal ileitis 2. Abdominal pain and nausea secondary to 1. Resolved 3. Incidental finding of left hip avascular necrosis, no indication for any intervention as per Orthopedics 4. Hypertension 5. Dyslipidemia 6. GERD Discharge Disposition: Home SNF Discharge Will this Physician continue t: No Discharge Instruct/Medications Diet: Cardiac 2g Na,low cholest Activity: No Restrictions, As Tolerated Follow Up/Referral: Outpatient follow up with the PCP in 1-2 weeks Follow up with the GI in 1-2 weeks. Medications: Resume home medications. Continued Medications: Atorvastatin Calcium (Lipitor) 20 Mg Tab 1 TAB PO DAILY, #90 TAB 1 Refill Benazepril Hcl (Benazepril Hcl) 40 Mg Tab 40 MG PO DAILY, TAB Buspirone HCl (Buspirone Hydrochloride) 15 Mg Tab 1 TAB PO BID Chlorthalidone (Chlorthalidone) 25 Mg Tab 25 MG PO DAILY@BREAKFAST, TAB Colchicine (Colchicine) 0.6 Mg Cap 0.6 MG PO BID, #20 CAP Cyclobenzaprine Base (Cyclobenzaprine HCl) 1 Pow Pow Unknown Dose XX BID, POW Enalapril Maleate (Enalapril Maleate) 2.5 Mg Tab 2.5 MG PO DAILY for 30 Days, MG Omeprazole (Gnp Omeprazole) 20 Mg Tab 1 TAB PO DAILY, #90 TAB 1 Refill Ramelteon (Ramelteon) 8 Mg Tab 1 TAB PO HSPRN PRN Tart Moran (Prunus Cerasus) (Tart Moran Ultra) 1,200 Mg Cap 1200 MG PO, CAP Scheduled Atorvastatin Calcium (Lipitor), 1 TAB PO DAILY, (Reported) Benazepril Hcl (Benazepril Hcl), 40 MG PO DAILY, (Reported) Buspirone HCl (Buspirone Hydrochloride), 1 TAB PO BID, (Reported) Chlorthalidone (Chlorthalidone), 25 MG PO DAILY@BREAKFAST, (Reported) Colchicine (Colchicine), 0.6 MG PO BID Cyclobenzaprine Base (Cyclobenzaprine HCl), Unknown Dose XX BID, (Reported) Enalapril Maleate (Enalapril Maleate), 2.5 MG PO DAILY, (Reported) Omeprazole (Gnp Omeprazole), 1 TAB PO DAILY, (Reported) Scheduled PRN Ramelteon (Ramelteon), 1 TAB PO HSPRN PRN, (Reported) Miscellaneous Medications Tart Moran (Prunus Cerasus) (Tart Moran Ultra), 1,200 MG PO, (Reported) Discontinued Medications Buspirone Hcl (Buspirone Hcl), 10 MG PO BID, (Reported) Indomethacin (Indocin), 50 MG RE TID Discharge Statement: "Patient was advised to return to the ER or call 911 if any headaches, dizziness, shortness of breath, chest pain, abdominal pain, bleeding, fevers, or worsening of medical condition. Patient was counseled about treatment plan, medications, possible side effects, patientverbalized understanding. All questions were answered to the best of my ability. This discharge took greater then 30 minutes in planning, reviewing documentation, counseling the patient, and discussing with other team members." ASSESSMENT ASSESSMENT Assessment 1. Terminal ileitis 2. Abdominal pain and nausea secondary to 1. Resolved 3. Incidental finding of left hip avascular necrosis, no indication for any intervention as per Orthopedics 4. Hypertension 5. Dyslipidemia 6. GERD Date of Service: Nov 11, 2025 Billing Provider: ESTEFANIA PARDO MD Common Visit Codes: 30548-CTJ/OBS DISCH DAY >30min ESTEFANIA PARDO MD Nov 11, 2025 17:03
== END 2025-11-11 18:26 | disposition left against medical advice (07) | DRG 245 ==
LOC: ER 06:52 → OVERFLOW 10:59 → CENTRAL 11-11 05:36
PROVIDERS: ADMIT Internal Medicine; ATTEND Internal Medicine
DX: K50.00 Crohn's disease of small intestine without complications (principal); A04.9 Bacterial intestinal infection, unspecified; N17.9 Acute kidney failure, unspecified; I10 Essential (primary) hypertension; E86.0 Dehydration; K57.30 Diverticulosis of large intestine without perforation or abscess without bleeding; E78.5 Hyperlipidemia, unspecified; K21.9 Gastro-esophageal reflux disease without esophagitis; F41.9 Anxiety disorder, unspecified; Z96.641 Presence of right artificial hip joint; M87.9 Osteonecrosis, unspecified; Z88.6 Allergy status to analgesic agent; I16.0 Hypertensive urgency
CPT/HCPCS: 36415; 74176; 80048; 80053; 81001; 83690; 85025; 96361; 96365; 96375; G0378; J1885; J2405; J2470; J3490